=== PATIENT | male | born 1935 | race Caucasian/White ===

== ENCOUNTER 2018-02-14 00:29 | Inpatient (IN) ==
[2018-02-14] MEDS ORDERED: ASPIRIN 325 MG TABLET PO STA (00:55)
[2018-02-14] MEDS ORDERED: FUROSEMIDE 40 MG/4 ML VIAL IV STA (00:55)
[2018-02-14] MEDS ORDERED: ALBUTEROL/IPRATROPIUM 3 ML NEB RESP TX STA (00:55)
[2018-02-14] MEDS ORDERED: ONDANSETRON 4 MG/2 ML VIAL IV STA (00:55)
[2018-02-14] MEDS ORDERED: NITROGLYCERIN 2% OINT 1 INCH/GM PACK TOP STA (00:55)
[2018-02-14 01:14] LABS: Basophils # 0.1 10*3/uL (0.0-0.2); Basophils % 0.8 % (0.0-0.8); Eosinophils # 0.4 10*3/uL (0.0-0.87); Hematocrit 50.8 VOL% (42.0-52.0); Hemoglobin 16.8 GM/DL (14.0-18.0); Immature Granulocytes % 0.5 %; Immature Granulocytes Absolute 0.06 #; Lymphocytes # 1.3 10*3/uL (1.4-4.0); Lymphocytes % 10.4 % (21.2-54.2); Mean Corpuscular HGB Conc 33.1 GM/DL (32-36); Mean Corpuscular Hemoglobin 31 PG (27-34); Mean Corpuscular Volume 92.5 FL (87-102); Mean Platelet Volume 11.1 FL (9.6-12.0); Monocytes # 0.6 10*3/uL (0.11-0.8); Monocytes % 4.5 % (1.7-12.7); Neutrophils # 10.2 10*3/uL (1.4-7.4); Neutrophils % 80.8 % (38.7-73.9); Platelet Count 232 T/CUMM (130-400); Red Blood Count 5.49 MC/CUMM (3.8-5.5); Red Cell Distribution Width 13.7 % (9.3-17.3); White Blood Count 12.6 T/CUMM (4-12)
[2018-02-14 01:26] LABS: PT Patient Result 10.7 SECS; Partial Thromboplastin Time 23.3 SECS (0-40)
[2018-02-14] MEDS ORDERED: LEVOFLOXACIN INJ 750 MG in PREMIX 1 EACH IV STA (01:27)
[2018-02-14] MEDS ORDERED: ONDANSETRON 4 MG/2 ML VIAL ONE (01:35)
[2018-02-14] MEDS ORDERED: FUROSEMIDE 100 MG/10 ML VIAL ONE (01:35)
[2018-02-14] MEDS ORDERED: LEVOFLOXACIN INJ 150 ML IV ONE (01:35)
[2018-02-14] MEDS ORDERED: NITROGLYCERIN 2% OINT 1 INCH/GM PACK TOP ONE (01:35)
[2018-02-14 01:36] LABS: CKMB % 8.7 %
[2018-02-14] MEDS ORDERED: ASPIRIN 325 MG TABLET ONE (01:36)
[2018-02-14 01:40] LABS: Troponin I Only 0.508 NG/ML (0.00-0.045)
[2018-02-14 01:45] LABS: Albumin 4.1 G/DL (3.4-5.0); Bilirubin,Total 0.8 MG/DL (0.2-1.0); Calcium 10.1 MG/DL (8.5-10.1); Osmolality,Calculated 290.8 MOS/KG (273-304); Potassium 4.2 MMOL/L (3.5-5.1); Total Protein 8.5 G/DL (6.4-8.3)
[2018-02-14] MEDS ORDERED: MORPHINE 4 MG/1 ML VIAL ONE (02:45)
[2018-02-14] MEDS ORDERED: MORPHINE 4 MG/1 ML VIAL IV PRN (02:49)
[2018-02-14] MEDS ORDERED: ONDANSETRON 4 MG/2 ML VIAL IV PRN (02:49)
[2018-02-14] MEDS ORDERED: GLUCAGON 1 MG VIAL IM PRN (02:49)
[2018-02-14] MEDS ORDERED: ALBUTEROL 2.5 MG/3 ML NEB RESP TX PRN (02:49)
[2018-02-14] MEDS ORDERED: DEXTROSE 50% 25 GM/50 ML VIAL IV PRN (02:49)
[2018-02-14] MEDS ORDERED: NITROGLYCERIN SL 0.4 MG TABLET SL PRN (03:02)
[2018-02-14 04:26] LABS: Apearance,Urine CLEAR (Clear); Bilirubin,Urine Negative (Negative); Blood, Urine Small mg/dL (Negative); Glucose,Urine (UA) 150 mg/dL (Negative); Hyaline Casts,Urine 10 /LPF (0-3); Ketones,Urine Negative (Negative); Mucus,Urine Occasional /LPF (Occasional); Nitrite,Urine Negative (Negative); Protein,Urine Negative; RBC,Urine <1 /HPF (0-4); Urine Color Straw (Yellow); Urine Specific Gravity 1.008 (1.001-1.035); Urine Urobilinogen < 2.0 EU/DL (0.2-1.0)
[2018-02-14] MEDS: ENOXAPARIN 60 MG/0.6 ML SYRINGE SUBCUT SCH (05:09)
[2018-02-14] MEDS: ROSUVASTATIN 10 MG TABLET PO SCH (05:09)
[2018-02-14] MEDS: cefTRIAXone 1,000 MG in SYRINGE 1 EACH IV SCH (05:09)
[2018-02-14 05:16] LABS: Lactic Acid 3.5 MMOL/L (0.4-2.0)
[2018-02-14 06:32] LABS: Basophils % 0.3 % (0.0-0.8); Eosinophils % 0.1 % (0.00-10.9); Hematocrit 46.6 VOL% (42.0-52.0); Hemoglobin 15.5 GM/DL (14.0-18.0); Immature Granulocytes % 0.6 %; Immature Granulocytes Absolute 0.08 #; Lymphocytes # 0.5 10*3/uL (1.4-4.0); Lymphocytes % 3.8 % (21.2-54.2); Mean Corpuscular HGB Conc 33.3 GM/DL (32-36); Mean Corpuscular Hemoglobin 31 PG (27-34); Mean Corpuscular Volume 92.6 FL (87-102); Mean Platelet Volume 10.8 FL (9.6-12.0); Monocytes # 0.6 10*3/uL (0.11-0.8); Monocytes % 4.6 % (1.7-12.7); Neutrophils # 12.7 10*3/uL (1.4-7.4); Neutrophils % 90.6 % (38.7-73.9); Platelet Count 185 T/CUMM (130-400); Red Blood Count 5.03 MC/CUMM (3.8-5.5); Red Cell Distribution Width 13.7 % (9.3-17.3)
[2018-02-14] MEDS: LEVOTHYROXINE 25 MCG TABLET PO SCH (07:05)
[2018-02-14 07:10] LABS: Band Neutrophils 2 % (0-10); Lymphocytes 1 % (20-55); Segmented Neutrophils 91 % (50-85); Total Cells Counted 100
[2018-02-14 07:11] LABS: Calcium 9.9 MG/DL (8.5-10.1); Osmolality,Calculated 288.8 MOS/KG (273-304); Potassium 4.5 MMOL/L (3.5-5.1); Risk Ratio 2.87; Thyroid Stimulating Hormone 6.8 uIU/ml (0.358-3.74); VLDL CHOLESTEROL 18.6 MG/DL
[2018-02-14] MEDS: ALBUTEROL/IPRATROPIUM 3 ML NEB RESP TX SCH ×3 (07:17→19:20)
[2018-02-14] MEDS: FUROSEMIDE 40 MG/4 ML VIAL IV SCH ×2 (08:19→16:17)
[2018-02-14] MEDS: INSULIN LISPRO 100 UNIT/ML SUBCUT SCH ×4 (08:20→21:39)
[2018-02-14] MEDS: METOPROLOL TARTRATE 25 MG TABLET PO SCH ×2 (08:29→21:40)
[2018-02-14] MEDS: CLOPIDOGREL 75 MG TABLET PO SCH (08:29)
[2018-02-14] MEDS: PANTOPRAZOLE 40 MG TABLET PO SCH (08:29)
[2018-02-14] MEDS ORDERED: amLODIPine 10 MG TABLET PO SCH (09:00)
[2018-02-14] MEDS: AZITHROMYCIN INJ 500 MG in SODIUM CHLORIDE 0.9% 250 ML IV SCH (09:01)
[2018-02-14] MEDS: METOPROLOL TARTRATE 5 MG/5 ML VIAL IV SCH ×3 (16:50→17:02)
[2018-02-14] MEDS: ASPIRIN EC 81 MG TABLET PO SCH (21:40)
[2018-02-15] MEDS: ALBUTEROL/IPRATROPIUM 3 ML NEB RESP TX SCH ×4 (00:50→19:20)
[2018-02-15] MEDS ORDERED: METOPROLOL TARTRATE 5 MG/5 ML VIAL IV ONE ×3 (03:00→16:31)
[2018-02-15 05:53] LABS: Basophils # 0.1 10*3/uL (0.0-0.2); Basophils % 0.7 % (0.0-0.8); Eosinophils # 0.4 10*3/uL (0.0-0.87); Eosinophils % 3.3 % (0.00-10.9); Hematocrit 42.7 VOL% (42.0-52.0); Hemoglobin 14.1 GM/DL (14.0-18.0); Immature Granulocytes % 0.5 %; Immature Granulocytes Absolute 0.06 #; Lymphocytes # 1.5 10*3/uL (1.4-4.0); Lymphocytes % 11.6 % (21.2-54.2); Mean Corpuscular Hemoglobin 31 PG (27-34); Mean Corpuscular Volume 93.4 FL (87-102); Mean Platelet Volume 11.5 FL (9.6-12.0); Monocytes # 0.9 10*3/uL (0.11-0.8); Monocytes % 6.6 % (1.7-12.7); Neutrophils # 10.2 10*3/uL (1.4-7.4); Neutrophils % 77.3 % (38.7-73.9); Platelet Count 185 T/CUMM (130-400); Red Blood Count 4.57 MC/CUMM (3.8-5.5); Red Cell Distribution Width 14.1 % (9.3-17.3); White Blood Count 13.1 T/CUMM (4-12)
[2018-02-15] MEDS: ENOXAPARIN 60 MG/0.6 ML SYRINGE SUBCUT SCH (06:12)
[2018-02-15] MEDS: cefTRIAXone 1,000 MG in SYRINGE 1 EACH IV SCH (06:12)
[2018-02-15] MEDS: LEVOTHYROXINE 25 MCG TABLET PO SCH (06:12)
[2018-02-15 06:14] LABS: Calcium 9.6 MG/DL (8.5-10.1)
[2018-02-15 06:15] LABS: Osmolality,Calculated 285.4 MOS/KG (273-304); Potassium 4.2 MMOL/L (3.5-5.1)
[2018-02-15] MEDS: INSULIN LISPRO 100 UNIT/ML SUBCUT SCH ×3 (08:09→16:39)
[2018-02-15] MEDS: FUROSEMIDE 40 MG/4 ML VIAL IV SCH ×2 (08:23→16:07)
[2018-02-15] MEDS: AZITHROMYCIN INJ 500 MG in SODIUM CHLORIDE 0.9% 250 ML IV SCH (08:24)
[2018-02-15] MEDS: CLOPIDOGREL 75 MG TABLET PO SCH (08:24)
[2018-02-15] MEDS: PANTOPRAZOLE 40 MG TABLET PO SCH (08:25)
[2018-02-15] MEDS: METOPROLOL TARTRATE 25 MG TABLET PO SCH ×3 (08:25→20:18)
[2018-02-15] MEDS ORDERED: METOPROLOL TARTRATE 25 MG TABLET PO ONE (09:08)
[2018-02-15] MEDS: METOPROLOL TARTRATE 5 MG/5 ML VIAL IV SCH ×3 (11:06→11:35)
[2018-02-15] MEDS: ASPIRIN EC 81 MG TABLET PO SCH (20:18)
[2018-02-16] MEDS: INSULIN LISPRO 100 UNIT/ML SUBCUT SCH ×5 (01:30→21:33)
[2018-02-16] MEDS: ROSUVASTATIN 10 MG TABLET PO SCH (04:58)
[2018-02-16] MEDS: cefTRIAXone 1,000 MG in SYRINGE 1 EACH IV SCH (04:59)
[2018-02-16] MEDS: ENOXAPARIN 60 MG/0.6 ML SYRINGE SUBCUT SCH (04:59)
[2018-02-16 05:26] LABS: Basophils # 0.1 10*3/uL (0.0-0.2); Basophils % 0.7 % (0.0-0.8); Eosinophils # 0.2 10*3/uL (0.0-0.87); Eosinophils % 2.3 % (0.00-10.9); Hematocrit 43.9 VOL% (42.0-52.0); Hemoglobin 14.3 GM/DL (14.0-18.0); Immature Granulocytes % 0.3 %; Immature Granulocytes Absolute 0.03 #; Lymphocytes % 19.9 % (21.2-54.2); Mean Corpuscular HGB Conc 32.6 GM/DL (32-36); Mean Corpuscular Hemoglobin 31 PG (27-34); Mean Platelet Volume 11.4 FL (9.6-12.0); Monocytes # 0.7 10*3/uL (0.11-0.8); Monocytes % 6.9 % (1.7-12.7); Neutrophils # 7.2 10*3/uL (1.4-7.4); Neutrophils % 69.9 % (38.7-73.9); Platelet Count 131 T/CUMM (130-400); Red Blood Count 4.62 MC/CUMM (3.8-5.5); Red Cell Distribution Width 14.1 % (9.3-17.3); White Blood Count 10.3 T/CUMM (4-12)
[2018-02-16 05:56] LABS: Calcium 8.8 MG/DL (8.5-10.1)
[2018-02-16 05:57] LABS: Osmolality,Calculated 287.5 MOS/KG (273-304); Potassium 4.3 MMOL/L (3.5-5.1)
[2018-02-16 06:01] LABS: Troponin I Only 4.09 NG/ML (0.00-0.045)
[2018-02-16] MEDS: LEVOTHYROXINE 25 MCG TABLET PO SCH (06:34)
[2018-02-16] MEDS: ALBUTEROL/IPRATROPIUM 3 ML NEB RESP TX SCH ×4 (06:45→19:29)
[2018-02-16] MEDS: METOPROLOL TARTRATE 25 MG TABLET PO SCH ×3 (09:11→20:47)
[2018-02-16] MEDS: FUROSEMIDE 40 MG/4 ML VIAL IV SCH (09:11)
[2018-02-16] MEDS: CLOPIDOGREL 75 MG TABLET PO SCH (09:11)
[2018-02-16] MEDS: AZITHROMYCIN INJ 500 MG in SODIUM CHLORIDE 0.9% 250 ML IV SCH (09:11)
[2018-02-16] MEDS: PANTOPRAZOLE 40 MG TABLET PO SCH (09:11)
[2018-02-16] MEDS: ASPIRIN EC 81 MG TABLET PO SCH (20:47)
[2018-02-17] MEDS: ALBUTEROL/IPRATROPIUM 3 ML NEB RESP TX SCH ×4 (00:43→19:05)
[2018-02-17] MEDS: cefTRIAXone 1,000 MG in SYRINGE 1 EACH IV SCH (06:11)
[2018-02-17] MEDS: LEVOTHYROXINE 25 MCG TABLET PO SCH (06:11)
[2018-02-17] MEDS: ENOXAPARIN 60 MG/0.6 ML SYRINGE SUBCUT SCH (06:12)
[2018-02-17 08:12] LABS: Basophils # 0.1 10*3/uL (0.0-0.2); Basophils % 0.8 % (0.0-0.8); Eosinophils % 9.9 % (0.00-10.9); Hematocrit 41.5 VOL% (42.0-52.0); Hemoglobin 13.7 GM/DL (14.0-18.0); Immature Granulocytes % 0.5 %; Immature Granulocytes Absolute 0.05 #; Lymphocytes # 1.3 10*3/uL (1.4-4.0); Lymphocytes % 12.6 % (21.2-54.2); Mean Corpuscular Hemoglobin 31 PG (27-34); Mean Corpuscular Volume 93.3 FL (87-102); Mean Platelet Volume 11.6 FL (9.6-12.0); Monocytes # 0.8 10*3/uL (0.11-0.8); Monocytes % 7.3 % (1.7-12.7); Neutrophils # 7.1 10*3/uL (1.4-7.4); Neutrophils % 68.9 % (38.7-73.9); Platelet Count 150 T/CUMM (130-400); Red Blood Count 4.45 MC/CUMM (3.8-5.5); Red Cell Distribution Width 14.1 % (9.3-17.3); White Blood Count 10.4 T/CUMM (4-12)
[2018-02-17 08:38] LABS: Calcium 8.7 MG/DL (8.5-10.1); Osmolality,Calculated 294.1 MOS/KG (273-304); Potassium 3.7 MMOL/L (3.5-5.1)
[2018-02-17] MEDS: INSULIN LISPRO 100 UNIT/ML SUBCUT SCH ×4 (08:49→21:45)
[2018-02-17] MEDS: FUROSEMIDE 40 MG/4 ML VIAL IV SCH (08:50)
[2018-02-17] MEDS: METOPROLOL TARTRATE 25 MG TABLET PO SCH (08:50)
[2018-02-17] MEDS: CLOPIDOGREL 75 MG TABLET PO SCH (08:50)
[2018-02-17] MEDS: AZITHROMYCIN INJ 500 MG in SODIUM CHLORIDE 0.9% 250 ML IV SCH (08:57)
[2018-02-17] MEDS: PANTOPRAZOLE 40 MG TABLET PO SCH (09:36)
[2018-02-17] MEDS: METOPROLOL TARTRATE 50 MG TABLET PO SCH ×2 (14:53→21:46)
[2018-02-17] MEDS ORDERED: DILTIAZEM 30 MG TABLET PO ONE (17:00)
[2018-02-17] MEDS: ASPIRIN EC 81 MG TABLET PO SCH (21:45)
[2018-02-18] MEDS: ALBUTEROL/IPRATROPIUM 3 ML NEB RESP TX SCH ×2 (00:08→07:42)
[2018-02-18 04:33] LABS: Basophils # 0.1 10*3/uL (0.0-0.2); Basophils % 0.6 % (0.0-0.8); Eosinophils # 1.4 10*3/uL (0.0-0.87); Eosinophils % 12.7 % (0.00-10.9); Hematocrit 42.4 VOL% (42.0-52.0); Hemoglobin 14.1 GM/DL (14.0-18.0); Immature Granulocytes % 0.4 %; Immature Granulocytes Absolute 0.04 #; Lymphocytes # 1.8 10*3/uL (1.4-4.0); Lymphocytes % 16.4 % (21.2-54.2); Mean Corpuscular HGB Conc 33.3 GM/DL (32-36); Mean Corpuscular Hemoglobin 31 PG (27-34); Mean Corpuscular Volume 93.6 FL (87-102); Mean Platelet Volume 11.1 FL (9.6-12.0); Monocytes # 0.8 10*3/uL (0.11-0.8); Monocytes % 7.7 % (1.7-12.7); Neutrophils # 6.8 10*3/uL (1.4-7.4); Neutrophils % 62.2 % (38.7-73.9); Platelet Count 166 T/CUMM (130-400); Red Blood Count 4.53 MC/CUMM (3.8-5.5); Red Cell Distribution Width 14.2 % (9.3-17.3)
[2018-02-18 05:02] LABS: Calcium 8.8 MG/DL (8.5-10.1); Osmolality,Calculated 292.3 MOS/KG (273-304); Potassium 3.7 MMOL/L (3.5-5.1)
[2018-02-18 05:12] LABS: Band Neutrophils 1 % (0-10); Eosinophils 13 % (0-10); Giant Platelets Few; Hypochromasia 1+; Lymphocytes 17 % (20-55); Ovalocytes Slight; Platelet Estimate Normal; Segmented Neutrophils 64 % (50-85); Total Cells Counted 100
[2018-02-18] MEDS: ENOXAPARIN 60 MG/0.6 ML SYRINGE SUBCUT SCH (06:25)
[2018-02-18] MEDS: ROSUVASTATIN 10 MG TABLET PO SCH (06:25)
[2018-02-18] MEDS: cefTRIAXone 1,000 MG in SYRINGE 1 EACH IV SCH (06:25)
[2018-02-18] MEDS: LEVOTHYROXINE 25 MCG TABLET PO SCH (06:25)
[2018-02-18] MEDS: PANTOPRAZOLE 40 MG TABLET PO SCH (09:16)
[2018-02-18] MEDS: CLOPIDOGREL 75 MG TABLET PO SCH (09:16)
[2018-02-18] MEDS: INSULIN LISPRO 100 UNIT/ML SUBCUT SCH ×2 (09:16→14:01)
[2018-02-18] MEDS: METOPROLOL TARTRATE 50 MG TABLET PO SCH (09:16)
[2018-02-18] MEDS: AZITHROMYCIN INJ 500 MG in SODIUM CHLORIDE 0.9% 250 ML IV SCH (09:24)
[2018-02-18] MEDS: FUROSEMIDE 40 MG/4 ML VIAL IV SCH (09:24)
[2018-02-18 12:02] VITALS: BP 109/59
== END 2018-02-18 14:20 | disposition home or self-care (01) | DRG 280 ==
LOC: N.ED 00:29 → SUATTDRO 02:43 → N.EDINP 02:43 → N.CC 04:50 → N.TELES 02-16 13:56
PROVIDERS: ADMIT Internal Medicine Infectious Disease; ATTEND Internal Medicine

== ENCOUNTER 2018-02-19 07:59 | Inpatient (IN) ==
[2018-02-19] MEDS ORDERED: SODIUM CHLORIDE 0.9% 500 ML IV STA (08:59)
[2018-02-19] MEDS ORDERED: ASPIRIN CHEW 81 MG TABLET PO STA (09:00)
[2018-02-19 09:16] LABS: Basophils # 0.1 10*3/uL (0.0-0.2); Basophils % 0.6 % (0.0-0.8); Eosinophils # 1.2 10*3/uL (0.0-0.87); Hematocrit 43.4 VOL% (42.0-52.0); Hemoglobin 14.4 GM/DL (14.0-18.0); Immature Granulocytes % 0.4 %; Immature Granulocytes Absolute 0.04 #; Lymphocytes # 0.6 10*3/uL (1.4-4.0); Lymphocytes % 5.6 % (21.2-54.2); Mean Corpuscular HGB Conc 33.2 GM/DL (32-36); Mean Corpuscular Hemoglobin 31 PG (27-34); Mean Corpuscular Volume 94.1 FL (87-102); Mean Platelet Volume 10.7 FL (9.6-12.0); Monocytes # 0.7 10*3/uL (0.11-0.8); Neutrophils # 8.2 10*3/uL (1.4-7.4); Neutrophils % 76.4 % (38.7-73.9); Platelet Count 179 T/CUMM (130-400); Red Blood Count 4.61 MC/CUMM (3.8-5.5); Red Cell Distribution Width 14.4 % (9.3-17.3); White Blood Count 10.8 T/CUMM (4-12)
[2018-02-19] MEDS ORDERED: ASPIRIN CHEW 81 MG TABLET PO ONE (09:18)
[2018-02-19 09:37] LABS: Eosinophils 11 % (0-10); Lymphocytes 5 % (20-55); Segmented Neutrophils 80 % (50-85); Total Cells Counted 100
[2018-02-19 09:38] LABS: Microcytosis Slight; Platelet Estimate Adequate
[2018-02-19 09:42] LABS: Blood Urea Nitrogen 36 MG/DL (7-18); Calcium 9.2 MG/DL (8.5-10.1); Glucose 167 MG/DL (74-106); Osmolality,Calculated 290.4 MOS/KG (273-304); Potassium 3.8 MMOL/L (3.5-5.1); Sodium 140 MMOL/L (136-145)
[2018-02-19 09:43] LABS: Troponin I Only 0.709 NG/ML (0.00-0.045)
[2018-02-19] MEDS ORDERED: ACETAMINOPHEN 325 MG TABLET PO PRN (12:45)
[2018-02-19] MEDS ORDERED: LACTULOSE 20 GM/30 ML UDCUP PO PRN (12:45)
[2018-02-19] MEDS ORDERED: DOCUSATE SODIUM 100 MG CAPSULE PO PRN (12:45)
[2018-02-19] MEDS ORDERED: FUROSEMIDE 40 MG/4 ML VIAL IV STA (12:52)
[2018-02-19] MEDS ORDERED: DILTIAZEM 100 MG VIAL.ADD IV ONE (13:49)
[2018-02-19] MEDS ORDERED: DILTIAZEM INJ 100 MG in SODIUM CHLORIDE 0.9% 100 ML IV SCH (14:00)
[2018-02-19] MEDS: ENOXAPARIN 40 MG/0.4 ML SYRINGE SUBCUT SCH (14:01)
[2018-02-19] MEDS: MORPHINE 4 MG/1 ML VIAL IV PRN (14:07)
[2018-02-19] MEDS ORDERED: NITROGLYCERIN SL 0.4 MG TABLET SL PRN (14:21)
[2018-02-19 15:06] LABS: ABG HCO3 19.2 MMOL/L (20-26); ABG PH 7.487 (7.35-7.45)
[2018-02-19 15:07] LABS: ABG Base Excess -2.3 MMOL/L (-2.5-2.5); ABG Oxygen Saturation 90.9 % (95-100)
[2018-02-19] MEDS: ASPIRIN EC 81 MG TABLET PO SCH (21:12)
[2018-02-19] MEDS: METOPROLOL TARTRATE 50 MG TABLET PO SCH (21:12)
[2018-02-20] MEDS: ENOXAPARIN 40 MG/0.4 ML SYRINGE SUBCUT SCH ×2 (02:04→15:15)
[2018-02-20 05:12] LABS: Basophils # 0.1 10*3/uL (0.0-0.2); Basophils % 0.3 % (0.0-0.8); Eosinophils # 0.1 10*3/uL (0.0-0.87); Eosinophils % 0.8 % (0.00-10.9); Hematocrit 42.5 VOL% (42.0-52.0); Hemoglobin 14.4 GM/DL (14.0-18.0); Immature Granulocytes % 0.5 %; Immature Granulocytes Absolute 0.08 #; Lymphocytes # 0.9 10*3/uL (1.4-4.0); Lymphocytes % 5.8 % (21.2-54.2); Mean Corpuscular HGB Conc 33.9 GM/DL (32-36); Mean Corpuscular Hemoglobin 31 PG (27-34); Mean Corpuscular Volume 92.2 FL (87-102); Mean Platelet Volume 11.4 FL (9.6-12.0); Monocytes # 0.8 10*3/uL (0.11-0.8); Monocytes % 5.5 % (1.7-12.7); Neutrophils # 12.8 10*3/uL (1.4-7.4); Neutrophils % 87.1 % (38.7-73.9); Platelet Count 208 T/CUMM (130-400); Red Blood Count 4.61 MC/CUMM (3.8-5.5); Red Cell Distribution Width 14.6 % (9.3-17.3); White Blood Count 14.7 T/CUMM (4-12)
[2018-02-20 05:31] LABS: Calcium 9.2 MG/DL (8.5-10.1); Osmolality,Calculated 292.4 MOS/KG (273-304); Potassium 4.6 MMOL/L (3.5-5.1)
[2018-02-20] MEDS: LEVOTHYROXINE 25 MCG TABLET PO SCH (06:16)
[2018-02-20] MEDS ORDERED: amLODIPine 10 MG TABLET PO SCH (09:00)
[2018-02-20] MEDS: CLOPIDOGREL 75 MG TABLET PO SCH (09:16)
[2018-02-20] MEDS: PANTOPRAZOLE 40 MG TABLET PO SCH (09:16)
[2018-02-20] MEDS: ASPIRIN EC 81 MG TABLET PO SCH ×2 (09:17→21:10)
[2018-02-20] MEDS: METOPROLOL TARTRATE 50 MG TABLET PO SCH (10:33)
[2018-02-20] MEDS: METOPROLOL TARTRATE 25 MG TABLET PO SCH ×2 (12:31→21:08)
[2018-02-20] MEDS: AMIODARONE 200 MG TABLET PO SCH ×2 (12:31→21:08)
[2018-02-20] MEDS: FUROSEMIDE 40 MG/4 ML VIAL IV SCH (15:15)
[2018-02-21] MEDS: MORPHINE 4 MG/1 ML VIAL IV PRN (00:42)
[2018-02-21] MEDS: ONDANSETRON 4 MG/2 ML VIAL IV PRN (00:50)
[2018-02-21] MEDS: ENOXAPARIN 40 MG/0.4 ML SYRINGE SUBCUT SCH (02:11)
[2018-02-21 04:37] LABS: Basophils # 0.1 10*3/uL (0.0-0.2); Basophils % 0.9 % (0.0-0.8); Eosinophils # 0.8 10*3/uL (0.0-0.87); Eosinophils % 8.8 % (0.00-10.9); Hematocrit 41.9 VOL% (42.0-52.0); Hemoglobin 13.9 GM/DL (14.0-18.0); Immature Granulocytes % 0.2 %; Immature Granulocytes Absolute 0.02 #; Lymphocytes # 1.1 10*3/uL (1.4-4.0); Lymphocytes % 12.2 % (21.2-54.2); Mean Corpuscular HGB Conc 33.2 GM/DL (32-36); Mean Corpuscular Hemoglobin 31 PG (27-34); Mean Corpuscular Volume 93.7 FL (87-102); Mean Platelet Volume 11.3 FL (9.6-12.0); Monocytes # 0.5 10*3/uL (0.11-0.8); Monocytes % 5.7 % (1.7-12.7); Neutrophils # 6.7 10*3/uL (1.4-7.4); Neutrophils % 72.2 % (38.7-73.9); Platelet Count 191 T/CUMM (130-400); Red Blood Count 4.47 MC/CUMM (3.8-5.5); Red Cell Distribution Width 14.6 % (9.3-17.3); White Blood Count 9.3 T/CUMM (4-12)
[2018-02-21 04:51] LABS: Calcium 8.7 MG/DL (8.5-10.1); Osmolality,Calculated 296.1 MOS/KG (273-304); Potassium 4.1 MMOL/L (3.5-5.1)
[2018-02-21] MEDS: LEVOTHYROXINE 25 MCG TABLET PO SCH (06:00)
[2018-02-21] MEDS: FUROSEMIDE 40 MG/4 ML VIAL IV SCH (08:43)
[2018-02-21] MEDS: CLOPIDOGREL 75 MG TABLET PO SCH (08:43)
[2018-02-21] MEDS: AMIODARONE 200 MG TABLET PO SCH ×2 (08:43→21:19)
[2018-02-21] MEDS: METOPROLOL TARTRATE 25 MG TABLET PO SCH ×2 (08:43→21:19)
[2018-02-21] MEDS: ASPIRIN EC 81 MG TABLET PO SCH ×2 (08:44→21:19)
[2018-02-21] MEDS: PANTOPRAZOLE 40 MG TABLET PO SCH (08:44)
[2018-02-21] MEDS ORDERED: DEXTROSE 50% 25 GM/50 ML VIAL IV PRN (13:50)
[2018-02-21] MEDS ORDERED: GLUCAGON 1 MG VIAL IM PRN (13:50)
[2018-02-21] MEDS: ROSUVASTATIN 10 MG TABLET PO SCH (14:29)
[2018-02-21] MEDS: INSULIN LISPRO 100 UNIT/ML SUBCUT SCH ×2 (16:51→21:55)
[2018-02-22] MEDS: ONDANSETRON 4 MG/2 ML VIAL IV PRN (00:01)
[2018-02-22] MEDS: MORPHINE 4 MG/1 ML VIAL IV PRN (00:14)
[2018-02-22 04:42] LABS: Basophils # 0.1 10*3/uL (0.0-0.2); Basophils % 0.7 % (0.0-0.8); Eosinophils % 11.1 % (0.00-10.9); Hematocrit 41.3 VOL% (42.0-52.0); Hemoglobin 13.6 GM/DL (14.0-18.0); Immature Granulocytes Absolute 0.09 #; Lymphocytes # 1.5 10*3/uL (1.4-4.0); Lymphocytes % 15.5 % (21.2-54.2); Mean Corpuscular HGB Conc 32.9 GM/DL (32-36); Mean Corpuscular Hemoglobin 31 PG (27-34); Mean Corpuscular Volume 94.7 FL (87-102); Mean Platelet Volume 11.3 FL (9.6-12.0); Monocytes # 0.6 10*3/uL (0.11-0.8); Monocytes % 6.6 % (1.7-12.7); Neutrophils # 6.1 10*3/uL (1.4-7.4); Neutrophils % 65.1 % (38.7-73.9); Platelet Count 201 T/CUMM (130-400); Red Blood Count 4.36 MC/CUMM (3.8-5.5); Red Cell Distribution Width 14.4 % (9.3-17.3); White Blood Count 9.4 T/CUMM (4-12)
[2018-02-22 05:06] LABS: Calcium 9.1 MG/DL (8.5-10.1); Osmolality,Calculated 290.7 MOS/KG (273-304); Potassium 4.3 MMOL/L (3.5-5.1)
[2018-02-22 05:14] LABS: Eosinophils 9 % (0-10); Lymphocytes 14 % (20-55); Segmented Neutrophils 73 % (50-85); Total Cells Counted 100
[2018-02-22 05:15] LABS: Platelet Estimate Adequate; Polychromasia Slight
[2018-02-22] MEDS: LEVOTHYROXINE 25 MCG TABLET PO SCH (06:26)
[2018-02-22] MEDS: ENOXAPARIN 30 MG/0.3 ML SYRINGE SUBCUT SCH (06:26)
[2018-02-22] MEDS ORDERED: MAGNESIUM SULF RIDER 2 GM in PREMIX 1 EACH IV PRN (08:29)
[2018-02-22] MEDS ORDERED: diphenhydrAMINE CAP 25 MG CAPSULE PO ONE (08:29)
[2018-02-22] MEDS ORDERED: POTASSIUM CHLORIDE RIDER 10 MEQ in PREMIX 1 EACH IV PRN (08:29)
[2018-02-22] MEDS ORDERED: DIAZEPAM 5 MG TABLET PO ONE (08:29)
[2018-02-22] MEDS ORDERED: FUROSEMIDE 40 MG/4 ML VIAL IV SCH (09:00)
[2018-02-22] MEDS: INSULIN LISPRO 100 UNIT/ML SUBCUT SCH ×4 (09:32→22:02)
[2018-02-22] MEDS: AMIODARONE 200 MG TABLET PO SCH ×2 (10:09→21:32)
[2018-02-22] MEDS: METOPROLOL TARTRATE 25 MG TABLET PO SCH ×2 (10:10→21:32)
[2018-02-22] MEDS: ASPIRIN EC 81 MG TABLET PO SCH ×2 (10:10→21:32)
[2018-02-22] MEDS: PANTOPRAZOLE 40 MG TABLET PO SCH (10:10)
[2018-02-22] MEDS: CLOPIDOGREL 75 MG TABLET PO SCH (10:10)
[2018-02-22] MEDS ORDERED: LIDOCAINE 5% PATCH TRANSDERM PRN (13:25)
[2018-02-22] MEDS ORDERED: CLORAZEPATE 3.75 MG TABLET PO PRN (14:34)
[2018-02-23] MEDS: MORPHINE 4 MG/1 ML VIAL IV PRN (00:37)
[2018-02-23 05:52] LABS: Basophils # 0.1 10*3/uL (0.0-0.2); Basophils % 0.8 % (0.0-0.8); Eosinophils # 0.5 10*3/uL (0.0-0.87); Eosinophils % 4.5 % (0.00-10.9); Hematocrit 43.6 VOL% (42.0-52.0); Immature Granulocytes % 0.5 %; Immature Granulocytes Absolute 0.05 #; Lymphocytes # 1.1 10*3/uL (1.4-4.0); Lymphocytes % 10.8 % (21.2-54.2); Mean Corpuscular HGB Conc 32.1 GM/DL (32-36); Mean Corpuscular Hemoglobin 31 PG (27-34); Mean Corpuscular Volume 95.2 FL (87-102); Mean Platelet Volume 11.6 FL (9.6-12.0); Monocytes # 0.8 10*3/uL (0.11-0.8); Monocytes % 7.7 % (1.7-12.7); Neutrophils # 7.7 10*3/uL (1.4-7.4); Neutrophils % 75.7 % (38.7-73.9); Platelet Count 168 T/CUMM (130-400); Red Blood Count 4.58 MC/CUMM (3.8-5.5); Red Cell Distribution Width 14.7 % (9.3-17.3); White Blood Count 10.2 T/CUMM (4-12)
[2018-02-23] MEDS: ENOXAPARIN 30 MG/0.3 ML SYRINGE SUBCUT SCH (06:15)
[2018-02-23] MEDS: LEVOTHYROXINE 25 MCG TABLET PO SCH (06:15)
[2018-02-23 06:16] LABS: Calcium 8.7 MG/DL (8.5-10.1); Osmolality,Calculated 296.4 MOS/KG (273-304); Potassium 4.7 MMOL/L (3.5-5.1)
[2018-02-23] MEDS ORDERED: DIAZEPAM 5 MG TABLET PO ONE (06:30)
[2018-02-23] MEDS ORDERED: diphenhydrAMINE CAP 50 MG CAPSULE PO ONE (06:30)
[2018-02-23] MEDS ORDERED: HEPARIN/NACL 0.9% 2 UNITS/ML 1,000 ML IV ONE (06:48)
[2018-02-23] MEDS ORDERED: LIDOCAINE 1%/EPI INJ 20 ML VIAL ONE (06:48)
[2018-02-23] MEDS: CLOPIDOGREL 75 MG TABLET PO SCH ×2 (06:56→09:11)
[2018-02-23] MEDS: PANTOPRAZOLE 40 MG TABLET PO SCH ×2 (06:56→09:11)
[2018-02-23] MEDS: AMIODARONE 200 MG TABLET PO SCH ×3 (06:56→21:24)
[2018-02-23] MEDS: ASPIRIN EC 81 MG TABLET PO SCH ×3 (06:56→21:24)
[2018-02-23] MEDS: METOPROLOL TARTRATE 25 MG TABLET PO SCH ×3 (06:57→21:24)
[2018-02-23] MEDS ORDERED: MIDAZOLAM 2 MG/2 ML VIAL ONE (07:23)
[2018-02-23] MEDS ORDERED: fentaNYL 100 MCG/2 ML VIAL ONE (07:23)
[2018-02-23] MEDS: INSULIN LISPRO 100 UNIT/ML SUBCUT SCH ×4 (07:41→22:49)
[2018-02-23] MEDS ORDERED: SODIUM CHLORIDE 0.45% 1,000 ML IV SCH (08:30)
[2018-02-23] MEDS ORDERED: FUROSEMIDE 40 MG TABLET PO SCH (09:00)
[2018-02-23] MEDS: ROSUVASTATIN 10 MG TABLET PO SCH (15:36)
[2018-02-24 04:57] LABS: Basophils % 0.4 % (0.0-0.8); Eosinophils # 0.2 10*3/uL (0.0-0.87); Hematocrit 43.1 VOL% (42.0-52.0); Hemoglobin 14.4 GM/DL (14.0-18.0); Immature Granulocytes % 0.4 %; Immature Granulocytes Absolute 0.04 #; Lymphocytes # 1.6 10*3/uL (1.4-4.0); Mean Corpuscular HGB Conc 33.4 GM/DL (32-36); Mean Corpuscular Hemoglobin 31 PG (27-34); Mean Corpuscular Volume 93.1 FL (87-102); Mean Platelet Volume 11.9 FL (9.6-12.0); Monocytes % 9.2 % (1.7-12.7); Neutrophils # 7.9 10*3/uL (1.4-7.4); Platelet Count 241 T/CUMM (130-400); Red Blood Count 4.63 MC/CUMM (3.8-5.5); Red Cell Distribution Width 14.9 % (9.3-17.3); White Blood Count 10.8 T/CUMM (4-12)
[2018-02-24 05:29] LABS: Calcium 8.9 MG/DL (8.5-10.1); Osmolality,Calculated 295.7 MOS/KG (273-304); Potassium 4.8 MMOL/L (3.5-5.1)
[2018-02-24] MEDS: ENOXAPARIN 30 MG/0.3 ML SYRINGE SUBCUT SCH (06:30)
[2018-02-24] MEDS: LEVOTHYROXINE 25 MCG TABLET PO SCH (06:31)
[2018-02-24] MEDS: INSULIN LISPRO 100 UNIT/ML SUBCUT SCH ×4 (08:00→22:14)
[2018-02-24] MEDS: PANTOPRAZOLE 40 MG TABLET PO SCH (08:45)
[2018-02-24] MEDS: ASPIRIN EC 81 MG TABLET PO SCH ×2 (08:45→21:22)
[2018-02-24] MEDS: AMIODARONE 200 MG TABLET PO SCH ×2 (08:45→21:22)
[2018-02-24] MEDS: METOPROLOL TARTRATE 25 MG TABLET PO SCH ×2 (08:46→21:22)
[2018-02-24] MEDS: CLOPIDOGREL 75 MG TABLET PO SCH (08:46)
[2018-02-24] MEDS ORDERED: FUROSEMIDE 40 MG/4 ML VIAL IV ONE (09:21)
[2018-02-24] MEDS: SODIUM CHLORIDE 0.45% 1,000 ML IV SCH ×2 (09:53→20:02)
[2018-02-25 05:09] LABS: Basophils # 0.1 10*3/uL (0.0-0.2); Basophils % 0.5 % (0.0-0.8); Eosinophils # 0.4 10*3/uL (0.0-0.87); Eosinophils % 4.1 % (0.00-10.9); Hematocrit 40.4 VOL% (42.0-52.0); Hemoglobin 13.8 GM/DL (14.0-18.0); Immature Granulocytes % 0.3 %; Immature Granulocytes Absolute 0.03 #; Lymphocytes # 1.3 10*3/uL (1.4-4.0); Lymphocytes % 14.1 % (21.2-54.2); Mean Corpuscular HGB Conc 34.2 GM/DL (32-36); Mean Corpuscular Hemoglobin 32 PG (27-34); Mean Corpuscular Volume 92.2 FL (87-102); Mean Platelet Volume 11.6 FL (9.6-12.0); Monocytes # 0.8 10*3/uL (0.11-0.8); Monocytes % 8.4 % (1.7-12.7); NRBC # 0.02 10*3/uL; Neutrophils # 6.8 10*3/uL (1.4-7.4); Neutrophils % 72.6 % (38.7-73.9); Platelet Count 198 T/CUMM (130-400); Red Blood Count 4.38 MC/CUMM (3.8-5.5); Red Cell Distribution Width 14.6 % (9.3-17.3); White Blood Count 9.3 T/CUMM (4-12)
[2018-02-25 05:37] LABS: Calcium 7.9 MG/DL (8.5-10.1); Osmolality,Calculated 295.7 MOS/KG (273-304); Potassium 4.3 MMOL/L (3.5-5.1)
[2018-02-25 05:42] LABS: Calcium 8.2 MG/DL (8.5-10.1); Osmolality,Calculated 298.5 MOS/KG (273-304); Potassium 4.4 MMOL/L (3.5-5.1)
[2018-02-25] MEDS: SODIUM CHLORIDE 0.45% 1,000 ML IV SCH ×2 (06:02→15:37)
[2018-02-25] MEDS: ENOXAPARIN 30 MG/0.3 ML SYRINGE SUBCUT SCH (06:03)
[2018-02-25] MEDS: LEVOTHYROXINE 25 MCG TABLET PO SCH (06:03)
[2018-02-25] MEDS: INSULIN LISPRO 100 UNIT/ML SUBCUT SCH ×4 (08:04→20:38)
[2018-02-25] MEDS: CLOPIDOGREL 75 MG TABLET PO SCH (08:43)
[2018-02-25] MEDS: METOPROLOL TARTRATE 25 MG TABLET PO SCH ×2 (08:43→20:37)
[2018-02-25] MEDS: ASPIRIN EC 81 MG TABLET PO SCH ×2 (08:43→20:37)
[2018-02-25] MEDS: PANTOPRAZOLE 40 MG TABLET PO SCH (08:43)
[2018-02-25] MEDS: AMIODARONE 200 MG TABLET PO SCH ×2 (08:43→20:37)
[2018-02-25] MEDS: ROSUVASTATIN 10 MG TABLET PO SCH (15:29)
[2018-02-26] MEDS: SODIUM CHLORIDE 0.45% 1,000 ML IV SCH (03:01)
[2018-02-26 05:39] LABS: Calcium 8.2 MG/DL (8.5-10.1); Osmolality,Calculated 293.8 MOS/KG (273-304); Potassium 4.3 MMOL/L (3.5-5.1)
[2018-02-26] MEDS: LEVOTHYROXINE 25 MCG TABLET PO SCH (06:07)
[2018-02-26] MEDS: ENOXAPARIN 30 MG/0.3 ML SYRINGE SUBCUT SCH (06:08)
[2018-02-26] MEDS: INSULIN LISPRO 100 UNIT/ML SUBCUT SCH ×4 (09:36→22:23)
[2018-02-26] MEDS: METOPROLOL TARTRATE 25 MG TABLET PO SCH ×2 (09:37→20:24)
[2018-02-26] MEDS: CLOPIDOGREL 75 MG TABLET PO SCH (09:38)
[2018-02-26] MEDS: AMIODARONE 200 MG TABLET PO SCH (09:38)
[2018-02-26] MEDS: ASPIRIN EC 81 MG TABLET PO SCH (09:38)
[2018-02-26] MEDS: PANTOPRAZOLE 40 MG TABLET PO SCH (09:38)
[2018-02-26] MEDS ORDERED: FUROSEMIDE 40 MG/4 ML VIAL IV ONE (10:24)
[2018-02-26] MEDS: POTASSIUM CHLORIDE 10 MEQ TABLET PO SCH ×2 (11:04→20:24)
[2018-02-26] MEDS ORDERED: FUROSEMIDE 40 MG/4 ML VIAL IV SCH (16:00)
[2018-02-26] MEDS: hydrALAZINE 25 MG TABLET PO SCH ×2 (17:00→20:24)
[2018-02-26] MEDS: FUROSEMIDE 40 MG/4 ML VIAL IV SCH (17:01)
[2018-02-27 05:54] LABS: Calcium 8.5 MG/DL (8.5-10.1); Osmolality,Calculated 291.5 MOS/KG (273-304)
[2018-02-27] MEDS: LEVOTHYROXINE 25 MCG TABLET PO SCH (06:30)
[2018-02-27] MEDS: ENOXAPARIN 30 MG/0.3 ML SYRINGE SUBCUT SCH (06:31)
[2018-02-27] MEDS: INSULIN LISPRO 100 UNIT/ML SUBCUT SCH ×4 (09:29→20:44)
[2018-02-27] MEDS: ASPIRIN EC 81 MG TABLET PO SCH (09:37)
[2018-02-27] MEDS: AMIODARONE 200 MG TABLET PO SCH (09:37)
[2018-02-27] MEDS: POTASSIUM CHLORIDE 10 MEQ TABLET PO SCH ×2 (09:37→20:36)
[2018-02-27] MEDS: hydrALAZINE 25 MG TABLET PO SCH (09:37)
[2018-02-27] MEDS: METOPROLOL TARTRATE 25 MG TABLET PO SCH ×2 (09:37→20:36)
[2018-02-27] MEDS: PANTOPRAZOLE 40 MG TABLET PO SCH (09:38)
[2018-02-27] MEDS: CLOPIDOGREL 75 MG TABLET PO SCH (09:38)
[2018-02-27] MEDS: FUROSEMIDE 40 MG/4 ML VIAL IV SCH ×2 (09:43→17:11)
[2018-02-28 05:50] LABS: Calcium 8.1 MG/DL (8.5-10.1); Osmolality,Calculated 292.3 MOS/KG (273-304); Potassium 3.6 MMOL/L (3.5-5.1)
[2018-02-28] MEDS: ENOXAPARIN 30 MG/0.3 ML SYRINGE SUBCUT SCH (06:10)
[2018-02-28] MEDS: LEVOTHYROXINE 25 MCG TABLET PO SCH (06:10)
[2018-02-28] MEDS: FUROSEMIDE 40 MG/4 ML VIAL IV SCH (08:48)
[2018-02-28] MEDS: ASPIRIN EC 81 MG TABLET PO SCH (08:48)
[2018-02-28] MEDS: CLOPIDOGREL 75 MG TABLET PO SCH (08:48)
[2018-02-28] MEDS: AMIODARONE 200 MG TABLET PO SCH (08:48)
[2018-02-28] MEDS: POTASSIUM CHLORIDE 10 MEQ TABLET PO SCH (08:48)
[2018-02-28] MEDS: METOPROLOL TARTRATE 25 MG TABLET PO SCH ×2 (08:48→08:56)
[2018-02-28] MEDS: PANTOPRAZOLE 40 MG TABLET PO SCH (08:48)
[2018-02-28] MEDS: INSULIN LISPRO 100 UNIT/ML SUBCUT SCH (08:49)
[2018-02-28 11:54] VITALS: BP 95/67
== END 2018-02-28 12:00 | disposition home or self-care (01) | DRG 280 ==
LOC: N.ED 07:59 → SUATTDRO 10:57 → N.EDINP 10:57 → N.TELEN 13:16
PROVIDERS: ADMIT Internal Medicine; ATTEND Internal Medicine

== ENCOUNTER 2018-03-03 15:18 | Inpatient (IN) ==
[2018-03-03] MEDS ORDERED: FUROSEMIDE 40 MG/4 ML VIAL IV STA (15:50)
[2018-03-03] MEDS ORDERED: MORPHINE 4 MG/1 ML VIAL IV STA ×2 (15:50→16:00)
[2018-03-03 16:05] LABS: Basophils # 0.1 10*3/uL (0.0-0.2); Basophils % 0.7 % (0.0-0.8); Eosinophils # 0.7 10*3/uL (0.0-0.87); Eosinophils % 4.6 % (0.00-10.9); Hematocrit 47.1 VOL% (42.0-52.0); Immature Granulocytes % 0.5 %; Immature Granulocytes Absolute 0.07 #; Lymphocytes # 2.4 10*3/uL (1.4-4.0); Mean Corpuscular HGB Conc 31.8 GM/DL (32-36); Mean Corpuscular Hemoglobin 31 PG (27-34); Mean Corpuscular Volume 96.1 FL (87-102); Mean Platelet Volume 10.8 FL (9.6-12.0); Monocytes # 0.8 10*3/uL (0.11-0.8); Monocytes % 5.3 % (1.7-12.7); Neutrophils # 11.1 10*3/uL (1.4-7.4); Neutrophils % 72.9 % (38.7-73.9); Platelet Count 302 T/CUMM (130-400); Red Cell Distribution Width 14.8 % (9.3-17.3); White Blood Count 15.2 T/CUMM (4-12)
[2018-03-03 16:13] LABS: PT Patient Result 10.9 SECS
[2018-03-03] MEDS ORDERED: FUROSEMIDE 40 MG/4 ML VIAL ONE ×2 (16:20→16:22)
[2018-03-03] MEDS ORDERED: MORPHINE 4 MG/1 ML VIAL ONE (16:23)
[2018-03-03] MEDS ORDERED: FUROSEMIDE 40 MG/4 ML VIAL IV ONE (16:25)
[2018-03-03 16:26] LABS: Lactic Acid 4.2 MMOL/L (0.4-2.0)
[2018-03-03 16:27] LABS: Blood Urea Nitrogen 34 MG/DL (7-18); Calcium 8.8 MG/DL (8.5-10.1); Glucose 193 MG/DL (74-106); Osmolality,Calculated 287.7 MOS/KG (273-304); Potassium 4.3 MMOL/L (3.5-5.1); Sodium 138 MMOL/L (136-145)
[2018-03-03 16:28] LABS: Troponin I Only 0.173 NG/ML (0.00-0.045)
[2018-03-03] MEDS ORDERED: ETOMIDATE 20 MG/10 ML VIAL IV ONE ×2 (17:10→17:18)
[2018-03-03] MEDS ORDERED: ROCURONIUM 100 MG/10 ML VIAL IV ONE ×2 (17:10→17:19)
[2018-03-03] MEDS ORDERED: ONDANSETRON 4 MG/2 ML VIAL IV PRN (17:50)
[2018-03-03] MEDS: PROPOFOL 1,000 MG/100 ML BOTTLE IV SCH (18:10)
[2018-03-03] MEDS ORDERED: SODIUM CHLORIDE 0.9% 1,400 ML IV ONE (18:14)
[2018-03-03] MEDS ORDERED: PROPOFOL 1,000 MG/100 ML BOTTLE IV ONE (18:14)
[2018-03-03] MEDS ORDERED: DEXTROSE 50% 25 GM/50 ML VIAL IV PRN (18:48)
[2018-03-03] MEDS ORDERED: GLUCAGON 1 MG VIAL IM PRN (18:48)
[2018-03-03] MEDS: PANTOPRAZOLE 40 MG VIAL IV SCH (19:01)
[2018-03-03 19:05] LABS: ABG Base Excess -6.9 MMOL/L (-2.5-2.5); ABG HCO3 18.9 MMOL/L (20-26); ABG Oxygen Saturation 99.3 % (95-100); ABG PCO2 46.2 MM HG (35-48); ABG PH 7.258 (7.35-7.45); ABG TCO2 17.8 MMOL/L (23-27); Allen Test Positive; Pt O2 Delivery Device Ventilator
[2018-03-03] MEDS: LEVOFLOXACIN INJ 750 MG in PREMIX 1 EACH IV SCH (19:40)
[2018-03-03] MEDS: ALBUTEROL/IPRATROPIUM 3 ML NEB RESP TX SCH (19:51)
[2018-03-03] MEDS: ALBUTEROL 2.5 MG/3 ML NEB RESP TX PRN (19:55)
[2018-03-03 20:22] LABS: ABG Base Excess -5.1 MMOL/L (-2.5-2.5); ABG HCO3 20.3 MMOL/L (20-26); ABG Oxygen Saturation 98.8 % (95-100); ABG PCO2 32.5 MM HG (35-48); ABG PH 7.377 (7.35-7.45); ABG TCO2 16.5 MMOL/L (23-27); Allen Test Positive; Pt O2 Delivery Device Ventilator
[2018-03-03] MEDS ORDERED: INSULIN LISPRO 100 UNIT/ML SUBCUT SCH (21:00)
[2018-03-03 21:42] LABS: Apearance,Urine CLEAR (Clear); Bacteria,Urine Occasional /HPF (Few); Bilirubin,Urine Negative (Negative); Blood, Urine Large mg/dL (Negative); Glucose,Urine (UA) Negative (Negative); Hyaline Casts,Urine 19 /LPF (0-3); Ketones,Urine Negative (Negative); Nitrite,Urine Negative (Negative); Protein,Urine Negative; RBC,Urine 306 /HPF (0-4); Squamous Epithelial Cell,Urine Occasional /HPF (0-10); Urine Color Yellow (Yellow); Urine Specific Gravity 1.008 (1.001-1.035); Urine Urobilinogen < 2.0 EU/DL (0.2-1.0); WBC,Urine 16 /HPF (0-6)
[2018-03-04] MEDS: ALBUTEROL/IPRATROPIUM 3 ML NEB RESP TX SCH ×4 (00:42→19:50)
[2018-03-04] MEDS: INSULIN LISPRO 100 UNIT/ML SUBCUT SCH ×4 (00:43→18:34)
[2018-03-04 03:37] LABS: ABG Base Excess -1.9 MMOL/L (-2.5-2.5); ABG HCO3 22.8 MMOL/L (20-26); ABG Oxygen Saturation 99.5 % (95-100); ABG PCO2 30.4 MM HG (35-48); ABG PH 7.446 (7.35-7.45); Allen Test Positive; Pt O2 Delivery Device Ventilator
[2018-03-04 05:15] LABS: Basophils # 0.1 10*3/uL (0.0-0.2); Basophils % 0.4 % (0.0-0.8); Eosinophils # 0.2 10*3/uL (0.0-0.87); Eosinophils % 1.6 % (0.00-10.9); Hematocrit 41.5 VOL% (42.0-52.0); Hemoglobin 13.2 GM/DL (14.0-18.0); Immature Granulocytes % 0.4 %; Immature Granulocytes Absolute 0.06 #; Lymphocytes % 7.2 % (21.2-54.2); Mean Corpuscular HGB Conc 31.8 GM/DL (32-36); Mean Corpuscular Hemoglobin 31 PG (27-34); Mean Corpuscular Volume 96.1 FL (87-102); Mean Platelet Volume 11.2 FL (9.6-12.0); Monocytes # 1.1 10*3/uL (0.11-0.8); Monocytes % 8.4 % (1.7-12.7); Neutrophils # 10.9 10*3/uL (1.4-7.4); Platelet Count 206 T/CUMM (130-400); Red Blood Count 4.32 MC/CUMM (3.8-5.5); Red Cell Distribution Width 14.6 % (9.3-17.3); White Blood Count 13.3 T/CUMM (4-12)
[2018-03-04 05:34] LABS: INR 1.1; PT Patient Result 11.9 SECS
[2018-03-04 05:49] LABS: Albumin 2.8 G/DL (3.4-5.0); Bilirubin,Total 0.9 MG/DL (0.2-1.0); Calcium 8.5 MG/DL (8.5-10.1); Osmolality,Calculated 288.4 MOS/KG (273-304); Thyroid Stimulating Hormone 6.75 uIU/ml (0.358-3.74); Total Protein 6.3 G/DL (6.4-8.3)
[2018-03-04] MEDS: CLORAZEPATE 3.75 MG TABLET PO PRN (08:42)
[2018-03-04] MEDS ORDERED: ALBUMIN 25% 25 GM in PREMIX 1 EACH IV ONE ×2 (10:19→17:00)
[2018-03-04] MEDS: ROSUVASTATIN 10 MG TABLET PO SCH (10:34)
[2018-03-04] MEDS: AMIODARONE 200 MG TABLET PO SCH (10:35)
[2018-03-04] MEDS: FUROSEMIDE 40 MG/4 ML VIAL IV SCH ×2 (10:35→20:17)
[2018-03-04] MEDS: CLOPIDOGREL 75 MG TABLET PO SCH (10:35)
[2018-03-04] MEDS: ISOSORBIDE MONONITRATE 30 MG TABLET PO SCH (10:35)
[2018-03-04] MEDS: PROPOFOL 1,000 MG/100 ML BOTTLE IV SCH (10:41)
[2018-03-04] MEDS: DESITIN 4OZ/NYSTATIN 15 GRAM MIXTURE PASTE TOP SCH ×2 (12:57→20:45)
[2018-03-04] MEDS ORDERED: FUROSEMIDE 40 MG/4 ML VIAL IV ONE (17:00)
[2018-03-04] MEDS: PANTOPRAZOLE 40 MG VIAL IV SCH (18:40)
[2018-03-04] MEDS: METOPROLOL TARTRATE 25 MG TABLET PO SCH (20:16)
[2018-03-04] MEDS: ASPIRIN CHEW 81 MG TABLET PO SCH (20:17)
[2018-03-05] MEDS: INSULIN LISPRO 100 UNIT/ML SUBCUT SCH ×4 (00:49→18:03)
[2018-03-05] MEDS: ALBUTEROL/IPRATROPIUM 3 ML NEB RESP TX SCH ×4 (00:56→20:00)
[2018-03-05] MEDS: PROPOFOL 1,000 MG/100 ML BOTTLE IV SCH ×3 (03:17→18:29)
[2018-03-05 04:24] LABS: Basophils % 0.4 % (0.0-0.8); Eosinophils # 0.5 10*3/uL (0.0-0.87); Eosinophils % 4.6 % (0.00-10.9); Hemoglobin 12.1 GM/DL (14.0-18.0); Immature Granulocytes % 0.4 %; Immature Granulocytes Absolute 0.04 #; Lymphocytes # 0.9 10*3/uL (1.4-4.0); Lymphocytes % 8.1 % (21.2-54.2); Mean Corpuscular HGB Conc 33.6 GM/DL (32-36); Mean Corpuscular Hemoglobin 31 PG (27-34); Mean Corpuscular Volume 90.9 FL (87-102); Mean Platelet Volume 10.9 FL (9.6-12.0); Monocytes # 0.9 10*3/uL (0.11-0.8); Monocytes % 8.7 % (1.7-12.7); Neutrophils # 8.4 10*3/uL (1.4-7.4); Neutrophils % 77.8 % (38.7-73.9); Platelet Count 166 T/CUMM (130-400); Red Blood Count 3.96 MC/CUMM (3.8-5.5); Red Cell Distribution Width 14.7 % (9.3-17.3); White Blood Count 10.8 T/CUMM (4-12)
[2018-03-05 04:54] LABS: ABG Base Excess 1.5 MMOL/L (-2.5-2.5); ABG HCO3 25.8 MMOL/L (20-26); ABG PCO2 27.2 MM HG (35-48); ABG PH 7.536 (7.35-7.45); ABG TCO2 20.2 MMOL/L (23-27); Allen Test Positive; Pt O2 Delivery Device Ventilator
[2018-03-05 04:55] LABS: Calcium 8.9 MG/DL (8.5-10.1); Osmolality,Calculated 290.1 MOS/KG (273-304); Potassium 3.8 MMOL/L (3.5-5.1)
[2018-03-05] MEDS: METOPROLOL TARTRATE 25 MG TABLET PO SCH ×2 (09:30→21:37)
[2018-03-05] MEDS: CLOPIDOGREL 75 MG TABLET PO SCH (09:32)
[2018-03-05] MEDS: AMIODARONE 200 MG TABLET PO SCH (09:32)
[2018-03-05] MEDS: ISOSORBIDE MONONITRATE 30 MG TABLET PO SCH (09:33)
[2018-03-05] MEDS: DESITIN 4OZ/NYSTATIN 15 GRAM MIXTURE PASTE TOP SCH ×2 (09:40→21:37)
[2018-03-05] MEDS: ENOXAPARIN 30 MG/0.3 ML SYRINGE SUBCUT SCH (09:40)
[2018-03-05] MEDS: FUROSEMIDE 40 MG/4 ML VIAL IV SCH ×2 (09:41→21:37)
[2018-03-05] MEDS: PANTOPRAZOLE 40 MG VIAL IV SCH (18:25)
[2018-03-05] MEDS: LEVOFLOXACIN INJ 750 MG in PREMIX 1 EACH IV SCH (18:33)
[2018-03-05] MEDS: ASPIRIN CHEW 81 MG TABLET PO SCH (21:37)
[2018-03-06] MEDS: ALBUTEROL/IPRATROPIUM 3 ML NEB RESP TX SCH ×4 (00:21→19:31)
[2018-03-06] MEDS: INSULIN LISPRO 100 UNIT/ML SUBCUT SCH ×4 (00:22→18:00)
[2018-03-06 04:24] LABS: ABG Base Excess 1.3 MMOL/L (-2.5-2.5); ABG HCO3 25.6 MMOL/L (20-26); ABG Oxygen Saturation 99.7 % (95-100); ABG PCO2 27.2 MM HG (35-48); ABG PH 7.531 (7.35-7.45); ABG TCO2 19.7 MMOL/L (23-27); Allen Test Positive; Pt O2 Delivery Device Ventilator
[2018-03-06] MEDS: PROPOFOL 1,000 MG/100 ML BOTTLE IV SCH ×2 (05:30→19:09)
[2018-03-06 06:26] LABS: Basophils # 0.1 10*3/uL (0.0-0.2); Basophils % 0.4 % (0.0-0.8); Eosinophils # 0.7 10*3/uL (0.0-0.87); Eosinophils % 5.8 % (0.00-10.9); Hematocrit 39.6 VOL% (42.0-52.0); Hemoglobin 12.8 GM/DL (14.0-18.0); Immature Granulocytes % 0.4 %; Immature Granulocytes Absolute 0.05 #; Lymphocytes # 0.9 10*3/uL (1.4-4.0); Lymphocytes % 7.5 % (21.2-54.2); Mean Corpuscular HGB Conc 32.3 GM/DL (32-36); Mean Corpuscular Hemoglobin 31 PG (27-34); Mean Corpuscular Volume 94.5 FL (87-102); Mean Platelet Volume 11.1 FL (9.6-12.0); Monocytes % 8.6 % (1.7-12.7); Neutrophils # 9.1 10*3/uL (1.4-7.4); Neutrophils % 77.3 % (38.7-73.9); Platelet Count 169 T/CUMM (130-400); Red Blood Count 4.19 MC/CUMM (3.8-5.5); Red Cell Distribution Width 14.7 % (9.3-17.3); White Blood Count 11.8 T/CUMM (4-12)
[2018-03-06 06:52] LABS: Calcium 8.9 MG/DL (8.5-10.1); Potassium 3.4 MMOL/L (3.5-5.1)
[2018-03-06] MEDS: ALBUTEROL 2.5 MG/3 ML NEB RESP TX PRN (07:35)
[2018-03-06] MEDS ORDERED: FUROSEMIDE 100 MG/10 ML VIAL ONE (08:13)
[2018-03-06] MEDS: METOPROLOL TARTRATE 25 MG TABLET PO SCH ×2 (08:36→22:31)
[2018-03-06] MEDS: CLOPIDOGREL 75 MG TABLET PO SCH (08:37)
[2018-03-06] MEDS: FUROSEMIDE 40 MG/4 ML VIAL IV SCH ×2 (08:37→22:30)
[2018-03-06] MEDS: ISOSORBIDE MONONITRATE 30 MG TABLET PO SCH (08:37)
[2018-03-06] MEDS: AMIODARONE 200 MG TABLET PO SCH (08:39)
[2018-03-06] MEDS: ENOXAPARIN 30 MG/0.3 ML SYRINGE SUBCUT SCH (08:39)
[2018-03-06] MEDS: DESITIN 4OZ/NYSTATIN 15 GRAM MIXTURE PASTE TOP SCH ×2 (13:08→22:31)
[2018-03-06] MEDS ORDERED: ADENOSINE 6 MG/2 ML VIAL ONE (15:49)
[2018-03-06] MEDS ORDERED: AMIODARONE INJ 450 MG in DEXTROSE 5% 241 ML IV SCH (16:00)
[2018-03-06] MEDS ORDERED: ADENOSINE 6 MG/2 ML VIAL IV ONE (17:35)
[2018-03-06] MEDS: PANTOPRAZOLE 40 MG VIAL IV SCH (19:09)
[2018-03-06] MEDS: ASPIRIN CHEW 81 MG TABLET PO SCH (22:31)
[2018-03-07] MEDS: INSULIN LISPRO 100 UNIT/ML SUBCUT SCH ×4 (00:03→18:58)
[2018-03-07] MEDS: ALBUTEROL/IPRATROPIUM 3 ML NEB RESP TX SCH ×4 (00:51→19:56)
[2018-03-07] MEDS: AMIODARONE INJ 450 MG in DEXTROSE 5% 241 ML IV SCH ×2 (01:58→13:00)
[2018-03-07] MEDS: PROPOFOL 1,000 MG/100 ML BOTTLE IV SCH ×2 (04:00→20:25)
[2018-03-07 04:26] LABS: ABG Base Excess 2.4 MMOL/L (-2.5-2.5); ABG HCO3 26.5 MMOL/L (20-26); ABG Oxygen Saturation 99.2 % (95-100); ABG PCO2 35.7 MM HG (35-48); ABG PH 7.467 (7.35-7.45); ABG TCO2 22.3 MMOL/L (23-27); Allen Test Positive; Pt O2 Delivery Device Ventilator
[2018-03-07 05:54] LABS: Basophils # 0.1 10*3/uL (0.0-0.2); Basophils % 0.5 % (0.0-0.8); Eosinophils # 0.7 10*3/uL (0.0-0.87); Eosinophils % 5.2 % (0.00-10.9); Hematocrit 40.6 VOL% (42.0-52.0); Hemoglobin 13.1 GM/DL (14.0-18.0); Immature Granulocytes % 0.6 %; Immature Granulocytes Absolute 0.08 #; Lymphocytes # 0.6 10*3/uL (1.4-4.0); Lymphocytes % 4.7 % (21.2-54.2); Mean Corpuscular HGB Conc 32.3 GM/DL (32-36); Mean Corpuscular Hemoglobin 31 PG (27-34); Mean Corpuscular Volume 94.9 FL (87-102); Monocytes % 7.6 % (1.7-12.7); Neutrophils # 10.3 10*3/uL (1.4-7.4); Neutrophils % 81.4 % (38.7-73.9); Platelet Count 151 T/CUMM (130-400); Red Blood Count 4.28 MC/CUMM (3.8-5.5); Red Cell Distribution Width 15.1 % (9.3-17.3); White Blood Count 12.7 T/CUMM (4-12)
[2018-03-07 06:37] LABS: Macrocytosis 1+; Platelet Estimate Normal
[2018-03-07 07:24] LABS: Osmolality,Calculated 298.7 MOS/KG (273-304); Potassium 3.3 MMOL/L (3.5-5.1)
[2018-03-07] MEDS ORDERED: FUROSEMIDE 20 MG/2 ML VIAL ONE (09:16)
[2018-03-07] MEDS: FUROSEMIDE 40 MG/4 ML VIAL IV SCH ×2 (09:22→20:25)
[2018-03-07] MEDS: CLOPIDOGREL 75 MG TABLET PO SCH (09:23)
[2018-03-07] MEDS: ISOSORBIDE MONONITRATE 30 MG TABLET PO SCH (09:23)
[2018-03-07] MEDS: ROSUVASTATIN 10 MG TABLET PO SCH (09:23)
[2018-03-07] MEDS: METOPROLOL TARTRATE 25 MG TABLET PO SCH (09:23)
[2018-03-07] MEDS: AMIODARONE 200 MG TABLET PO SCH (09:23)
[2018-03-07] MEDS: ENOXAPARIN 30 MG/0.3 ML SYRINGE SUBCUT SCH (09:24)
[2018-03-07] MEDS: DESITIN 4OZ/NYSTATIN 15 GRAM MIXTURE PASTE TOP SCH ×2 (09:24→20:26)
[2018-03-07 10:02] LABS: ABG Base Excess 1.6 MMOL/L (-2.5-2.5); ABG HCO3 25.8 MMOL/L (20-26); ABG Oxygen Saturation 96.4 % (95-100); ABG PCO2 35.8 MM HG (35-48); ABG PH 7.454 (7.35-7.45); ABG PO2 86.3 MM HG (80-95); ABG TCO2 21.3 MMOL/L (23-27)
[2018-03-07] MEDS: POTASSIUM CHLORIDE 20 MEQ/15 ML UDCUP PER TUBE PRN ×3 (11:48→18:19)
[2018-03-07] MEDS: CLORAZEPATE 3.75 MG TABLET PO PRN (14:03)
[2018-03-07] MEDS: POTASSIUM CHLORIDE 20 MEQ/15 ML UDCUP PO SCH (14:03)
[2018-03-07] MEDS: LEVOFLOXACIN INJ 750 MG in PREMIX 1 EACH IV SCH (18:19)
[2018-03-07] MEDS: PANTOPRAZOLE 40 MG VIAL IV SCH (18:19)
[2018-03-07] MEDS: ASPIRIN CHEW 81 MG TABLET PO SCH (20:26)
[2018-03-08] MEDS: METOPROLOL TARTRATE 25 MG TABLET PO SCH ×3 (00:08→20:01)
[2018-03-08] MEDS: INSULIN LISPRO 100 UNIT/ML SUBCUT SCH ×5 (00:08→20:00)
[2018-03-08] MEDS: ALBUTEROL/IPRATROPIUM 3 ML NEB RESP TX SCH ×4 (01:29→19:50)
[2018-03-08] MEDS: AMIODARONE INJ 450 MG in DEXTROSE 5% 241 ML IV SCH (04:34)
[2018-03-08 05:03] LABS: Basophils # 0.1 10*3/uL (0.0-0.2); Basophils % 0.3 % (0.0-0.8); Eosinophils # 0.7 10*3/uL (0.0-0.87); Eosinophils % 4.6 % (0.00-10.9); Hematocrit 44.5 VOL% (42.0-52.0); Hemoglobin 14.1 GM/DL (14.0-18.0); Immature Granulocytes % 0.5 %; Immature Granulocytes Absolute 0.07 #; Lymphocytes # 0.7 10*3/uL (1.4-4.0); Lymphocytes % 4.9 % (21.2-54.2); Mean Corpuscular HGB Conc 31.7 GM/DL (32-36); Mean Corpuscular Hemoglobin 31 PG (27-34); Mean Corpuscular Volume 96.1 FL (87-102); Mean Platelet Volume 11.4 FL (9.6-12.0); Monocytes # 1.3 10*3/uL (0.11-0.8); Monocytes % 8.4 % (1.7-12.7); Neutrophils # 12.3 10*3/uL (1.4-7.4); Neutrophils % 81.3 % (38.7-73.9); Platelet Count 156 T/CUMM (130-400); Red Blood Count 4.63 MC/CUMM (3.8-5.5); White Blood Count 15.1 T/CUMM (4-12)
[2018-03-08 05:33] LABS: Eosinophils 4 % (0-10); Hypochromasia 1+; Lymphocytes 2 % (20-55); Macrocytosis Slight; Platelet Estimate Normal; Segmented Neutrophils 85 % (50-85); Total Cells Counted 100
[2018-03-08 05:35] LABS: Calcium 8.9 MG/DL (8.5-10.1); Osmolality,Calculated 302.7 MOS/KG (273-304)
[2018-03-08] MEDS: CLORAZEPATE 3.75 MG TABLET PO PRN (05:45)
[2018-03-08 06:16] LABS: Prealbumin 14.6 MG/DL (20-40)
[2018-03-08 06:18] LABS: ABG Base Excess 2.3 MMOL/L (-2.5-2.5); ABG HCO3 26.4 MMOL/L (20-26); ABG Oxygen Saturation 92.9 % (95-100); ABG PCO2 37.3 MM HG (35-48); ABG PH 7.453 (7.35-7.45); ABG PO2 66.1 MM HG (80-95); ABG TCO2 22.4 MMOL/L (23-27); Allen Test Positive; Pt O2 Delivery Device Other
[2018-03-08 10:49] LABS: ABG Base Excess 4.7 MMOL/L (-2.5-2.5); ABG HCO3 27.5 MMOL/L (20-26); ABG Oxygen Saturation 92.1 % (95-100); ABG PH 7.513 (7.35-7.45); ABG PO2 64.7 MM HG (80-95); ABG TCO2 28.6 MMOL/L (23-27)
[2018-03-08] MEDS: ISOSORBIDE MONONITRATE 30 MG TABLET PO SCH (11:35)
[2018-03-08] MEDS: AMIODARONE 200 MG TABLET PO SCH (11:35)
[2018-03-08] MEDS: CLOPIDOGREL 75 MG TABLET PO SCH (11:35)
[2018-03-08] MEDS: POTASSIUM CHLORIDE 20 MEQ/15 ML UDCUP PO SCH (11:36)
[2018-03-08] MEDS: FUROSEMIDE 40 MG/4 ML VIAL IV SCH ×2 (11:40→20:00)
[2018-03-08] MEDS: DESITIN 4OZ/NYSTATIN 15 GRAM MIXTURE PASTE TOP SCH ×2 (11:46→20:01)
[2018-03-08] MEDS: ENOXAPARIN 30 MG/0.3 ML SYRINGE SUBCUT SCH (11:46)
[2018-03-08] MEDS: PANTOPRAZOLE 40 MG VIAL IV SCH (17:15)
[2018-03-08] MEDS: ASPIRIN CHEW 81 MG TABLET PO SCH (20:01)
[2018-03-09] MEDS: ALBUTEROL/IPRATROPIUM 3 ML NEB RESP TX SCH ×4 (00:26→19:36)
[2018-03-09 04:50] LABS: Allen Test Positive
[2018-03-09 05:09] LABS: ABG Base Excess 5.9 MMOL/L (-2.5-2.5); ABG HCO3 29.6 MMOL/L (20-26); ABG Oxygen Saturation 97.9 % (95-100); ABG PCO2 39.6 MM HG (35-48); ABG PH 7.492 (7.35-7.45); ABG PO2 104.9 MM HG (80-95); ABG TCO2 30.9 MMOL/L (23-27)
[2018-03-09] MEDS: INSULIN LISPRO 100 UNIT/ML SUBCUT SCH ×4 (09:29→21:22)
[2018-03-09] MEDS: METOPROLOL TARTRATE 25 MG TABLET PO SCH ×2 (09:30→21:17)
[2018-03-09] MEDS: FUROSEMIDE 40 MG/4 ML VIAL IV SCH ×2 (09:30→21:17)
[2018-03-09] MEDS: ISOSORBIDE MONONITRATE 30 MG TABLET PO SCH (09:30)
[2018-03-09] MEDS: ROSUVASTATIN 10 MG TABLET PO SCH (09:31)
[2018-03-09] MEDS: ENOXAPARIN 30 MG/0.3 ML SYRINGE SUBCUT SCH (09:31)
[2018-03-09] MEDS: CLOPIDOGREL 75 MG TABLET PO SCH (09:32)
[2018-03-09] MEDS: AMIODARONE 200 MG TABLET PO SCH (09:32)
[2018-03-09] MEDS: DESITIN 4OZ/NYSTATIN 15 GRAM MIXTURE PASTE TOP SCH ×2 (09:32→21:22)
[2018-03-09] MEDS: POTASSIUM CHLORIDE 20 MEQ/15 ML UDCUP PO SCH (09:33)
[2018-03-09] MEDS: cefTRIAXone 1,000 MG in SYRINGE 1 EACH IV SCH (09:40)
[2018-03-09 11:30] LABS: Calcium 8.6 MG/DL (8.5-10.1); Osmolality,Calculated 299.6 MOS/KG (273-304); Potassium 3.5 MMOL/L (3.5-5.1)
[2018-03-09] MEDS: PANTOPRAZOLE 40 MG VIAL IV SCH (19:08)
[2018-03-09] MEDS: ASPIRIN CHEW 81 MG TABLET PO SCH (21:22)
[2018-03-10] MEDS: ALBUTEROL/IPRATROPIUM 3 ML NEB RESP TX SCH ×4 (00:21→21:05)
[2018-03-10 04:58] LABS: Basophils # 0.1 10*3/uL (0.0-0.2); Basophils % 0.6 % (0.0-0.8); Eosinophils % 9.2 % (0.00-10.9); Hemoglobin 12.5 GM/DL (14.0-18.0); Immature Granulocytes % 0.4 %; Immature Granulocytes Absolute 0.04 #; Lymphocytes % 8.7 % (21.2-54.2); Mean Corpuscular HGB Conc 32.1 GM/DL (32-36); Mean Corpuscular Hemoglobin 31 PG (27-34); Mean Corpuscular Volume 96.1 FL (87-102); Mean Platelet Volume 11.2 FL (9.6-12.0); Monocytes # 1.1 10*3/uL (0.11-0.8); Monocytes % 10.2 % (1.7-12.7); NRBC # 0.02 10*3/uL; Neutrophils # 7.9 10*3/uL (1.4-7.4); Neutrophils % 70.9 % (38.7-73.9); Platelet Count 120 T/CUMM (130-400); Red Blood Count 4.06 MC/CUMM (3.8-5.5); Red Cell Distribution Width 14.3 % (9.3-17.3); White Blood Count 11.1 T/CUMM (4-12)
[2018-03-10 05:20] LABS: Calcium 8.8 MG/DL (8.5-10.1); Osmolality,Calculated 291.1 MOS/KG (273-304); Potassium 3.6 MMOL/L (3.5-5.1)
[2018-03-10] MEDS: LEVOTHYROXINE 25 MCG TABLET PO SCH (06:16)
[2018-03-10] MEDS: INSULIN LISPRO 100 UNIT/ML SUBCUT SCH ×3 (08:47→17:03)
[2018-03-10] MEDS: CLOPIDOGREL 75 MG TABLET PO SCH (09:06)
[2018-03-10] MEDS: POTASSIUM CHLORIDE 20 MEQ/15 ML UDCUP PO SCH (09:06)
[2018-03-10] MEDS: AMIODARONE 200 MG TABLET PO SCH (09:06)
[2018-03-10] MEDS: cefTRIAXone 1,000 MG in SYRINGE 1 EACH IV SCH (09:07)
[2018-03-10] MEDS: ISOSORBIDE MONONITRATE 30 MG TABLET PO SCH (09:07)
[2018-03-10] MEDS: ENOXAPARIN 30 MG/0.3 ML SYRINGE SUBCUT SCH (09:07)
[2018-03-10] MEDS: METOPROLOL TARTRATE 25 MG TABLET PO SCH ×2 (09:07→21:19)
[2018-03-10] MEDS: FUROSEMIDE 40 MG/4 ML VIAL IV SCH ×2 (09:07→21:19)
[2018-03-10] MEDS: DESITIN 4OZ/NYSTATIN 15 GRAM MIXTURE PASTE TOP SCH ×2 (09:08→21:18)
[2018-03-10] MEDS: PANTOPRAZOLE 40 MG VIAL IV SCH (17:17)
[2018-03-10] MEDS: ASPIRIN CHEW 81 MG TABLET PO SCH (21:19)
[2018-03-11] MEDS: INSULIN LISPRO 100 UNIT/ML SUBCUT SCH ×5 (01:16→22:50)
[2018-03-11] MEDS: ALBUTEROL/IPRATROPIUM 3 ML NEB RESP TX SCH ×4 (01:27→20:12)
[2018-03-11] MEDS: LEVOTHYROXINE 25 MCG TABLET PO SCH (06:01)
[2018-03-11] MEDS: POTASSIUM CHLORIDE 20 MEQ/15 ML UDCUP PO SCH (08:51)
[2018-03-11] MEDS: FUROSEMIDE 40 MG/4 ML VIAL IV SCH ×2 (08:52→21:35)
[2018-03-11] MEDS: ENOXAPARIN 30 MG/0.3 ML SYRINGE SUBCUT SCH (08:52)
[2018-03-11] MEDS: ISOSORBIDE MONONITRATE 30 MG TABLET PO SCH (08:53)
[2018-03-11] MEDS: CLOPIDOGREL 75 MG TABLET PO SCH (08:53)
[2018-03-11] MEDS: ROSUVASTATIN 10 MG TABLET PO SCH (08:53)
[2018-03-11] MEDS: cefTRIAXone 1,000 MG in SYRINGE 1 EACH IV SCH (08:54)
[2018-03-11] MEDS: METOPROLOL TARTRATE 25 MG TABLET PO SCH ×2 (08:54→21:34)
[2018-03-11] MEDS: AMIODARONE 200 MG TABLET PO SCH (08:54)
[2018-03-11] MEDS: DESITIN 4OZ/NYSTATIN 15 GRAM MIXTURE PASTE TOP SCH ×2 (08:54→22:50)
[2018-03-11 12:46] LABS: Basophils # 0.1 10*3/uL (0.0-0.2); Basophils % 0.7 % (0.0-0.8); Eosinophils # 0.9 10*3/uL (0.0-0.87); Eosinophils % 9.3 % (0.00-10.9); Hematocrit 44.9 VOL% (42.0-52.0); Hemoglobin 14.2 GM/DL (14.0-18.0); Immature Granulocytes % 0.3 %; Immature Granulocytes Absolute 0.03 #; Lymphocytes # 0.6 10*3/uL (1.4-4.0); Lymphocytes % 6.4 % (21.2-54.2); Mean Corpuscular HGB Conc 31.6 GM/DL (32-36); Mean Corpuscular Hemoglobin 31 PG (27-34); Mean Corpuscular Volume 96.6 FL (87-102); Mean Platelet Volume 11.1 FL (9.6-12.0); Monocytes # 0.8 10*3/uL (0.11-0.8); Monocytes % 8.6 % (1.7-12.7); Neutrophils # 7.3 10*3/uL (1.4-7.4); Neutrophils % 74.7 % (38.7-73.9); Platelet Count 195 T/CUMM (130-400); Red Blood Count 4.65 MC/CUMM (3.8-5.5); Red Cell Distribution Width 14.1 % (9.3-17.3); White Blood Count 9.7 T/CUMM (4-12)
[2018-03-11 13:15] LABS: Calcium 8.9 MG/DL (8.5-10.1); Osmolality,Calculated 288.5 MOS/KG (273-304); Potassium 4.7 MMOL/L (3.5-5.1)
[2018-03-11] MEDS: PANTOPRAZOLE 40 MG VIAL IV SCH (18:30)
[2018-03-11] MEDS: ASPIRIN CHEW 81 MG TABLET PO SCH (21:35)
[2018-03-12] MEDS: ALBUTEROL/IPRATROPIUM 3 ML NEB RESP TX SCH ×4 (01:50→19:14)
[2018-03-12] MEDS: LEVOTHYROXINE 25 MCG TABLET PO SCH (06:15)
[2018-03-12] MEDS: INSULIN LISPRO 100 UNIT/ML SUBCUT SCH ×4 (09:17→21:13)
[2018-03-12] MEDS: POTASSIUM CHLORIDE 20 MEQ/15 ML UDCUP PO SCH (09:18)
[2018-03-12] MEDS: METOPROLOL TARTRATE 25 MG TABLET PO SCH ×2 (09:21→21:20)
[2018-03-12] MEDS: ENOXAPARIN 30 MG/0.3 ML SYRINGE SUBCUT SCH (09:21)
[2018-03-12] MEDS: ISOSORBIDE MONONITRATE 30 MG TABLET PO SCH (09:22)
[2018-03-12] MEDS: AMIODARONE 200 MG TABLET PO SCH (09:22)
[2018-03-12] MEDS: CLOPIDOGREL 75 MG TABLET PO SCH (09:22)
[2018-03-12] MEDS: FUROSEMIDE 40 MG/4 ML VIAL IV SCH ×2 (09:26→21:14)
[2018-03-12] MEDS: cefTRIAXone 1,000 MG in SYRINGE 1 EACH IV SCH (09:29)
[2018-03-12] MEDS: DESITIN 4OZ/NYSTATIN 15 GRAM MIXTURE PASTE TOP SCH ×2 (09:56→21:28)
[2018-03-12] MEDS: PANTOPRAZOLE 40 MG VIAL IV SCH (17:28)
[2018-03-12] MEDS: ASPIRIN CHEW 81 MG TABLET PO SCH (21:20)
[2018-03-13] MEDS: ALBUTEROL/IPRATROPIUM 3 ML NEB RESP TX SCH ×4 (00:13→19:56)
[2018-03-13 04:58] LABS: Basophils # 0.1 10*3/uL (0.0-0.2); Basophils % 0.9 % (0.0-0.8); Eosinophils % 12.7 % (0.00-10.9); Hematocrit 43.9 VOL% (42.0-52.0); Immature Granulocytes % 0.4 %; Immature Granulocytes Absolute 0.03 #; Lymphocytes % 12.8 % (21.2-54.2); Mean Corpuscular HGB Conc 31.9 GM/DL (32-36); Mean Corpuscular Hemoglobin 30 PG (27-34); Mean Corpuscular Volume 94.8 FL (87-102); Mean Platelet Volume 10.6 FL (9.6-12.0); Monocytes # 0.7 10*3/uL (0.11-0.8); Monocytes % 9.3 % (1.7-12.7); Neutrophils # 4.9 10*3/uL (1.4-7.4); Neutrophils % 63.9 % (38.7-73.9); Platelet Count 227 T/CUMM (130-400); Red Blood Count 4.63 MC/CUMM (3.8-5.5); Red Cell Distribution Width 13.8 % (9.3-17.3); White Blood Count 7.6 T/CUMM (4-12)
[2018-03-13 05:28] LABS: Calcium 9.2 MG/DL (8.5-10.1); Osmolality,Calculated 289.3 MOS/KG (273-304); Potassium 4.4 MMOL/L (3.5-5.1)
[2018-03-13 05:47] LABS: Eosinophils 15 % (0-10); Lymphocytes 10 % (20-55); Segmented Neutrophils 69 % (50-85); Total Cells Counted 100
[2018-03-13 05:48] LABS: Hypochromasia 1+; Microcytosis Slight; Platelet Estimate Normal
[2018-03-13] MEDS: LEVOTHYROXINE 25 MCG TABLET PO SCH (06:38)
[2018-03-13] MEDS: POTASSIUM CHLORIDE 20 MEQ/15 ML UDCUP PO SCH (09:28)
[2018-03-13] MEDS: AMIODARONE 200 MG TABLET PO SCH (09:30)
[2018-03-13] MEDS: METOPROLOL TARTRATE 25 MG TABLET PO SCH ×2 (09:30→20:44)
[2018-03-13] MEDS: CLOPIDOGREL 75 MG TABLET PO SCH (09:30)
[2018-03-13] MEDS: ISOSORBIDE MONONITRATE 30 MG TABLET PO SCH (09:31)
[2018-03-13] MEDS: INSULIN LISPRO 100 UNIT/ML SUBCUT SCH ×4 (09:33→20:45)
[2018-03-13] MEDS: cefTRIAXone 1,000 MG in SYRINGE 1 EACH IV SCH (09:33)
[2018-03-13] MEDS: FUROSEMIDE 40 MG/4 ML VIAL IV SCH ×2 (09:34→20:44)
[2018-03-13] MEDS: DESITIN 4OZ/NYSTATIN 15 GRAM MIXTURE PASTE TOP SCH ×2 (09:46→20:46)
[2018-03-13] MEDS: ENOXAPARIN 30 MG/0.3 ML SYRINGE SUBCUT SCH (09:46)
[2018-03-13] MEDS: PANTOPRAZOLE 40 MG VIAL IV SCH (18:47)
[2018-03-13] MEDS: ASPIRIN CHEW 81 MG TABLET PO SCH (20:44)
[2018-03-14] MEDS: ALBUTEROL/IPRATROPIUM 3 ML NEB RESP TX SCH ×2 (00:43→07:53)
[2018-03-14] MEDS: LEVOTHYROXINE 25 MCG TABLET PO SCH (06:11)
[2018-03-14] MEDS: INSULIN LISPRO 100 UNIT/ML SUBCUT SCH (08:39)
[2018-03-14] MEDS: ENOXAPARIN 30 MG/0.3 ML SYRINGE SUBCUT SCH (08:40)
[2018-03-14] MEDS: cefTRIAXone 1,000 MG in SYRINGE 1 EACH IV SCH (08:40)
[2018-03-14] MEDS: POTASSIUM CHLORIDE 20 MEQ/15 ML UDCUP PO SCH (08:41)
[2018-03-14] MEDS: FUROSEMIDE 40 MG/4 ML VIAL IV SCH (08:42)
[2018-03-14] MEDS: METOPROLOL TARTRATE 25 MG TABLET PO SCH (08:43)
[2018-03-14] MEDS: CLOPIDOGREL 75 MG TABLET PO SCH (08:43)
[2018-03-14] MEDS: ROSUVASTATIN 10 MG TABLET PO SCH (08:43)
[2018-03-14] MEDS: AMIODARONE 200 MG TABLET PO SCH (08:44)
[2018-03-14] MEDS: ISOSORBIDE MONONITRATE 30 MG TABLET PO SCH (08:44)
[2018-03-14] MEDS: DESITIN 4OZ/NYSTATIN 15 GRAM MIXTURE PASTE TOP SCH (08:53)
[2018-03-14 12:40] VITALS: BP 121/73
== END 2018-03-14 14:11 | disposition home health service (06) | DRG 166 ==
LOC: N.ED 15:18 → N.EDINP 16:53 → SUATTDRO 16:53 → N.CC 17:58 → N.TELES 03-09 19:22
PROVIDERS: ADMIT Internal Medicine; ATTEND Internal Medicine

== ENCOUNTER 2019-07-17 23:52 | Inpatient (IN) ==
[2019-07-18] MEDS ORDERED: ONDANSETRON 4 MG/2 ML VIAL IV STA (00:17)
[2019-07-18] MEDS ORDERED: ASPIRIN 325 MG TABLET PO STA (00:17)
[2019-07-18] MEDS ORDERED: NITROGLYCERIN 2% OINT 1 INCH/GM PACK TOP STA (00:17)
[2019-07-18] MEDS ORDERED: FUROSEMIDE 100 MG/10 ML VIAL IV STA (00:17)
[2019-07-18] MEDS ORDERED: MORPHINE 4 MG/1 ML VIAL IV STA (00:17)
[2019-07-18] MEDS ORDERED: methylPREDNISolone SOD SUC 125 MG/2 ML VIAL IV STA (00:17)
[2019-07-18] MEDS ORDERED: ALBUTEROL 2.5 MG/3 ML NEB RESP TX SCH (00:30)
[2019-07-18 00:37] LABS: INR 0.9; PT Patient Result 10.2 SECS (9.6-12.2)
[2019-07-18 00:40] LABS: Albumin 3.5 G/DL (3.4-5.0); Bilirubin,Total 0.5 MG/DL (0.2-1.0); Calcium 8.7 MG/DL (8.5-10.1); Osmolality,Calculated 289.8 MOS/KG (273-304); Total Protein 7.8 G/DL (6.4-8.3)
[2019-07-18 00:43] LABS: ABG Base Excess -4.5 MMOL/L (-2.5-2.5); ABG HCO3 20.5 MMOL/L (20-26); ABG Oxygen Saturation 88.3 % (95-100); ABG PCO2 35.5 MM HG (35-48); ABG PH 7.362 (7.35-7.45); ABG PO2 56.9 MM HG (80-95); ABG TCO2 16.9 MMOL/L (23-27); Allen Test Positive; Pt O2 Delivery Device Other
[2019-07-18 00:48] LABS: Basophils # 0.1 10*3/uL (0.0-0.2); Basophils % 0.7 % (0.0-0.8); Eosinophils # 0.3 10*3/uL (0.0-0.87); Eosinophils % 3.1 % (0.00-10.9); Hematocrit 50.8 VOL% (42.0-52.0); Hemoglobin 16.5 GM/DL (14.0-18.0); Immature Granulocytes % 0.7 %; Immature Granulocytes Absolute 0.08 #; Lymphocytes # 2.3 10*3/uL (1.4-4.0); Lymphocytes % 21.2 % (21.2-54.2); Mean Corpuscular HGB Conc 32.5 GM/DL (32-36); Mean Corpuscular Volume 96.4 FL (87-102); Mean Platelet Volume 10.5 FL (9.6-12.0); Monocytes % 8.7 % (1.7-12.7); Neutrophils % 65.6 % (38.7-73.9); Platelet Count 271 T/CUMM (130-400); Red Blood Count 5.27 MC/CUMM (3.8-5.5); Red Cell Distribution Width 13.2 % (9.3-17.3); White Blood Count 10.7 T/CUMM (4-12)
[2019-07-18] MEDS ORDERED: cefTRIAXone 1,000 MG in SODIUM CHLORIDE 0.9% 100 ML IV STA (01:23)
[2019-07-18] MEDS ORDERED: DEXTROSE 50% 25 GM/50 ML VIAL IV PRN (02:03)
[2019-07-18] MEDS ORDERED: ONDANSETRON 4 MG/2 ML VIAL IV PRN (02:03)
[2019-07-18] MEDS ORDERED: GLUCAGON 1 MG VIAL IM PRN (02:03)
[2019-07-18] MEDS ORDERED: MORPHINE 4 MG/1 ML VIAL IV PRN (02:03)
[2019-07-18] MEDS ORDERED: SODIUM CHLORIDE 0.9% 1,000 ML IV SCH (02:03)
[2019-07-18] MEDS ORDERED: hydrALAZINE 20 MG/1 ML VIAL IV PRN (02:31)
[2019-07-18 04:21] LABS: Basophils % 0.3 % (0.0-0.8); Eosinophils % 0.1 % (0.00-10.9); Hematocrit 48.2 VOL% (42.0-52.0); Hemoglobin 15.9 GM/DL (14.0-18.0); Immature Granulocytes % 0.5 %; Immature Granulocytes Absolute 0.08 #; Lymphocytes # 0.9 10*3/uL (1.4-4.0); Lymphocytes % 5.9 % (21.2-54.2); Mean Corpuscular Volume 95.1 FL (87-102); Mean Platelet Volume 10.3 FL (9.6-12.0); Neutrophils % 91.2 % (38.7-73.9); Platelet Count 222 T/CUMM (130-400); Red Blood Count 5.07 MC/CUMM (3.8-5.5); Red Cell Distribution Width 13.3 % (9.3-17.3); White Blood Count 15.2 T/CUMM (4-12)
[2019-07-18 04:24] LABS: Albumin 3.4 G/DL (3.4-5.0); Bilirubin,Total 0.4 MG/DL (0.2-1.0); Calcium 8.9 MG/DL (8.5-10.1); Osmolality,Calculated 291.4 MOS/KG (273-304); Risk Ratio 3.03; VLDL CHOLESTEROL 19.6 MG/DL
[2019-07-18 04:50] LABS: Band Neutrophils 3 % (0-10); Lymphocytes 5 % (20-55); Platelet Estimate Normal; Segmented Neutrophils 89 % (50-85); Total Cells Counted 100
[2019-07-18] MEDS: ALBUTEROL/IPRATROPIUM 3 ML NEB RESP TX SCH ×2 (04:50→10:05)
[2019-07-18 05:24] LABS: Apearance,Urine CLEAR (Clear); Bilirubin,Urine Negative (Negative); Blood, Urine Small mg/dL (Negative); Glucose,Urine (UA) 50 mg/dL (Negative); Hyaline Casts,Urine 8 /LPF (0-3); Ketones,Urine Negative (Negative); Mucus,Urine Occasional /LPF (Occasional); Nitrite,Urine Negative (Negative); Protein,Urine Negative; RBC,Urine <1 /HPF (0-4); Urine Color Straw (Yellow); Urine Specific Gravity 1.006 (1.001-1.035); Urine Urobilinogen < 2.0 EU/DL (0.2-1.0)
[2019-07-18] MEDS: INSULIN REGULAR 100 UNIT/ML SUBCUT SCH ×3 (06:40→18:47)
[2019-07-18] MEDS: ENOXAPARIN 40 MG/0.4 ML SYRINGE SUBCUT SCH (06:41)
[2019-07-18] MEDS ORDERED: CLORAZEPATE 3.75 MG TABLET PO PRN (07:46)
[2019-07-18] MEDS ORDERED: NITROGLYCERIN SL 0.4 MG TABLET SL PRN (07:54)
[2019-07-18] MEDS ORDERED: FUROSEMIDE 20 MG/2 ML VIAL ONE (08:24)
[2019-07-18] MEDS: POTASSIUM CHLORIDE 20 MEQ TABLET PO SCH (08:56)
[2019-07-18] MEDS: EZETIMIBE 10 MG TABLET PO SCH (08:57)
[2019-07-18] MEDS: DOCUSATE SODIUM 100 MG CAPSULE PO SCH ×2 (08:57→21:35)
[2019-07-18] MEDS: AMIODARONE 200 MG TABLET PO SCH (08:57)
[2019-07-18] MEDS: CLOPIDOGREL 75 MG TABLET PO SCH (08:57)
[2019-07-18] MEDS: LEVOTHYROXINE 50 MCG TABLET PO SCH (08:57)
[2019-07-18] MEDS: CARVEDILOL 12.5 MG TABLET PO SCH ×2 (08:57→21:36)
[2019-07-18] MEDS: FUROSEMIDE 40 MG/4 ML VIAL IV SCH ×2 (08:58→17:06)
[2019-07-18] MEDS: methylPREDNISolone SOD SUC 40 MG/1 ML VIAL IV SCH ×2 (08:58→17:07)
[2019-07-18] MEDS: PANTOPRAZOLE 40 MG VIAL IV SCH (08:59)
[2019-07-18] MEDS ORDERED: CARVEDILOL 6.25 MG TABLET PO SCH (09:00)
[2019-07-18] MEDS ORDERED: ISOSORBIDE MONONITRATE 30 MG TABLET PO SCH (09:00)
[2019-07-18] MEDS: LEVOFLOXACIN INJ 250 MG in PREMIX 1 EACH IV SCH (09:08)
[2019-07-18] MEDS: hydrALAZINE 10 MG TABLET PO SCH ×2 (09:08→21:35)
[2019-07-18 11:04] LABS: CKMB % 11.5 %
[2019-07-18 11:07] LABS: Troponin I 3.52 NG/ML (0.00-0.045)
[2019-07-18] MEDS: LEVALBUTEROL 0.63 MG/3 ML NEB RESP TX SCH ×2 (13:40→20:04)
[2019-07-18] MEDS ORDERED: ISOSORBIDE MONONITRATE 30 MG TABLET PO ONE (14:41)
[2019-07-18 15:06] LABS: Troponin I 3.51 NG/ML (0.00-0.045)
[2019-07-18 17:41] LABS: CKMB % 10.4 %
[2019-07-18 17:43] LABS: Troponin I 2.59 NG/ML (0.00-0.045)
[2019-07-18] MEDS: ASPIRIN EC 81 MG TABLET PO SCH (21:35)
[2019-07-19] MEDS: methylPREDNISolone SOD SUC 40 MG/1 ML VIAL IV SCH ×3 (00:20→17:18)
[2019-07-19] MEDS: INSULIN REGULAR 100 UNIT/ML SUBCUT SCH ×4 (00:20→18:48)
[2019-07-19] MEDS: LEVALBUTEROL 0.63 MG/3 ML NEB RESP TX SCH ×4 (00:59→20:03)
[2019-07-19 04:26] LABS: Basophils % 0.2 % (0.0-0.8); Hematocrit 46.6 VOL% (42.0-52.0); Hemoglobin 15.2 GM/DL (14.0-18.0); Immature Granulocytes % 1.3 %; Immature Granulocytes Absolute 0.31 #; Lymphocytes # 0.8 10*3/uL (1.4-4.0); Lymphocytes % 3.3 % (21.2-54.2); Mean Corpuscular HGB Conc 32.6 GM/DL (32-36); Mean Corpuscular Volume 94.9 FL (87-102); Mean Platelet Volume 10.6 FL (9.6-12.0); Monocytes % 1.9 % (1.7-12.7); Neutrophils % 93.3 % (38.7-73.9); Platelet Count 214 T/CUMM (130-400); Red Blood Count 4.91 MC/CUMM (3.8-5.5); Red Cell Distribution Width 13.2 % (9.3-17.3); White Blood Count 24.1 T/CUMM (4-12)
[2019-07-19 04:48] LABS: Calcium 8.9 MG/DL (8.5-10.1); Osmolality,Calculated 293.7 MOS/KG (273-304)
[2019-07-19 05:14] LABS: Band Neutrophils 1 % (0-10); Eosinophils 1 % (0-10); Lymphocytes 2 % (20-55); Platelet Estimate Adequate; Polychromasia Few; Segmented Neutrophils 94 % (50-85); Total Cells Counted 100
[2019-07-19] MEDS: LEVOTHYROXINE 50 MCG TABLET PO SCH (06:23)
[2019-07-19] MEDS: ENOXAPARIN 40 MG/0.4 ML SYRINGE SUBCUT SCH (06:23)
[2019-07-19] MEDS: hydrALAZINE 10 MG TABLET PO SCH ×2 (09:31→21:10)
[2019-07-19] MEDS: ISOSORBIDE MONONITRATE 30 MG TABLET PO SCH (09:31)
[2019-07-19] MEDS: EZETIMIBE 10 MG TABLET PO SCH (09:31)
[2019-07-19] MEDS: ROSUVASTATIN 10 MG TABLET PO SCH (09:31)
[2019-07-19] MEDS: DOCUSATE SODIUM 100 MG CAPSULE PO SCH ×2 (09:31→21:10)
[2019-07-19] MEDS: POTASSIUM CHLORIDE 20 MEQ TABLET PO SCH (09:31)
[2019-07-19] MEDS: CARVEDILOL 12.5 MG TABLET PO SCH ×2 (09:32→21:10)
[2019-07-19] MEDS: CLOPIDOGREL 75 MG TABLET PO SCH (09:32)
[2019-07-19] MEDS: AMIODARONE 200 MG TABLET PO SCH (09:32)
[2019-07-19] MEDS: glipiZIDE 5 MG TABLET PO SCH (09:32)
[2019-07-19] MEDS: FUROSEMIDE 40 MG/4 ML VIAL IV SCH ×2 (09:39→17:15)
[2019-07-19] MEDS: LEVOFLOXACIN INJ 250 MG in PREMIX 1 EACH IV SCH (09:40)
[2019-07-19] MEDS: PANTOPRAZOLE 40 MG VIAL IV SCH (09:42)
[2019-07-19] MEDS: ASPIRIN EC 81 MG TABLET PO SCH (21:10)
[2019-07-20] MEDS: INSULIN REGULAR 100 UNIT/ML SUBCUT SCH ×4 (01:02→18:33)
[2019-07-20] MEDS: LEVALBUTEROL 0.63 MG/3 ML NEB RESP TX SCH ×4 (01:39→20:45)
[2019-07-20] MEDS: methylPREDNISolone SOD SUC 40 MG/1 ML VIAL IV SCH ×3 (01:40→16:58)
[2019-07-20 04:31] LABS: Basophils % 0.2 % (0.0-0.8); Hemoglobin 14.5 GM/DL (14.0-18.0); Immature Granulocytes % 1.5 %; Immature Granulocytes Absolute 0.34 #; Lymphocytes # 0.7 10*3/uL (1.4-4.0); Mean Platelet Volume 10.6 FL (9.6-12.0); Monocytes % 2.7 % (1.7-12.7); Neutrophils % 92.6 % (38.7-73.9); Platelet Count 208 T/CUMM (130-400); Red Blood Count 4.63 MC/CUMM (3.8-5.5); Red Cell Distribution Width 13.3 % (9.3-17.3); White Blood Count 22.9 T/CUMM (4-12)
[2019-07-20 04:46] LABS: Calcium 8.7 MG/DL (8.5-10.1); Osmolality,Calculated 303.4 MOS/KG (273-304)
[2019-07-20 04:58] LABS: Lymphocytes 1 % (20-55); Platelet Estimate Adequate; Segmented Neutrophils 97 % (50-85); Total Cells Counted 100
[2019-07-20 04:59] LABS: Hypochromasia 1+
[2019-07-20] MEDS: ENOXAPARIN 30 MG/0.3 ML SYRINGE SUBCUT SCH (06:20)
[2019-07-20] MEDS: CLOPIDOGREL 75 MG TABLET PO SCH (08:00)
[2019-07-20] MEDS: hydrALAZINE 10 MG TABLET PO SCH ×2 (08:00→20:55)
[2019-07-20] MEDS: LEVOTHYROXINE 50 MCG TABLET PO SCH (08:00)
[2019-07-20] MEDS: PANTOPRAZOLE 40 MG TABLET PO SCH (08:00)
[2019-07-20] MEDS: CARVEDILOL 12.5 MG TABLET PO SCH ×2 (08:00→20:54)
[2019-07-20] MEDS: AMIODARONE 200 MG TABLET PO SCH (08:00)
[2019-07-20] MEDS: ISOSORBIDE MONONITRATE 30 MG TABLET PO SCH (08:00)
[2019-07-20] MEDS: DOCUSATE SODIUM 100 MG CAPSULE PO SCH ×2 (08:00→20:54)
[2019-07-20] MEDS: glipiZIDE 5 MG TABLET PO SCH (08:00)
[2019-07-20] MEDS: EZETIMIBE 10 MG TABLET PO SCH (08:00)
[2019-07-20] MEDS: POTASSIUM CHLORIDE 20 MEQ TABLET PO SCH (08:01)
[2019-07-20] MEDS: FUROSEMIDE 40 MG/4 ML VIAL IV SCH ×2 (08:04→16:53)
[2019-07-20] MEDS: LEVOFLOXACIN INJ 250 MG in PREMIX 1 EACH IV SCH (08:06)
[2019-07-20] MEDS: ASPIRIN EC 81 MG TABLET PO SCH (20:55)
[2019-07-21] MEDS: LEVALBUTEROL 0.63 MG/3 ML NEB RESP TX SCH ×4 (00:59→19:30)
[2019-07-21] MEDS: methylPREDNISolone SOD SUC 40 MG/1 ML VIAL IV SCH ×3 (01:24→16:26)
[2019-07-21] MEDS: INSULIN REGULAR 100 UNIT/ML SUBCUT SCH ×4 (01:26→18:28)
[2019-07-21 04:12] LABS: Basophils % 0.1 % (0.0-0.8); Hematocrit 41.6 VOL% (42.0-52.0); Hemoglobin 13.8 GM/DL (14.0-18.0); Immature Granulocytes % 2.1 %; Immature Granulocytes Absolute 0.45 #; Lymphocytes # 0.5 10*3/uL (1.4-4.0); Lymphocytes % 2.3 % (21.2-54.2); Mean Corpuscular HGB Conc 33.2 GM/DL (32-36); Mean Corpuscular Volume 93.5 FL (87-102); Mean Platelet Volume 10.9 FL (9.6-12.0); Monocytes % 3.2 % (1.7-12.7); Neutrophils % 92.3 % (38.7-73.9); Platelet Count 216 T/CUMM (130-400); Red Blood Count 4.45 MC/CUMM (3.8-5.5); Red Cell Distribution Width 13.3 % (9.3-17.3)
[2019-07-21 04:30] LABS: Osmolality,Calculated 306.3 MOS/KG (273-304)
[2019-07-21 04:38] LABS: Hypochromasia Slight; Lymphocytes 2 % (20-55); Platelet Estimate Adequate; Segmented Neutrophils 96 % (50-85); Total Cells Counted 100
[2019-07-21] MEDS: LEVOTHYROXINE 50 MCG TABLET PO SCH (06:31)
[2019-07-21] MEDS: ENOXAPARIN 30 MG/0.3 ML SYRINGE SUBCUT SCH (06:31)
[2019-07-21] MEDS ORDERED: MAGNESIUM HYDROXIDE SUSP 30 ML UDCUP PO PRN (08:23)
[2019-07-21] MEDS ORDERED: MAGNESIUM HYDROXIDE SUSP 30 ML UDCUP PO ONE (08:23)
[2019-07-21] MEDS: POTASSIUM CHLORIDE 20 MEQ TABLET PO SCH (09:02)
[2019-07-21] MEDS: DOCUSATE SODIUM 100 MG CAPSULE PO SCH ×2 (09:02→20:02)
[2019-07-21] MEDS: CLOPIDOGREL 75 MG TABLET PO SCH (09:02)
[2019-07-21] MEDS: ROSUVASTATIN 10 MG TABLET PO SCH (09:02)
[2019-07-21] MEDS: hydrALAZINE 10 MG TABLET PO SCH ×2 (09:02→20:02)
[2019-07-21] MEDS: glipiZIDE 5 MG TABLET PO SCH (09:03)
[2019-07-21] MEDS: PANTOPRAZOLE 40 MG TABLET PO SCH (09:03)
[2019-07-21] MEDS: EZETIMIBE 10 MG TABLET PO SCH (09:03)
[2019-07-21] MEDS: AMIODARONE 200 MG TABLET PO SCH (09:03)
[2019-07-21] MEDS: ISOSORBIDE MONONITRATE 30 MG TABLET PO SCH (09:03)
[2019-07-21] MEDS: CARVEDILOL 12.5 MG TABLET PO SCH ×2 (09:03→20:03)
[2019-07-21] MEDS: LEVOFLOXACIN INJ 250 MG in PREMIX 1 EACH IV SCH (09:04)
[2019-07-21] MEDS: FUROSEMIDE 40 MG/4 ML VIAL IV SCH ×2 (09:04→16:26)
[2019-07-21] MEDS: ACETAMINOPHEN 325 MG TABLET PO PRN (19:54)
[2019-07-21] MEDS: ASPIRIN EC 81 MG TABLET PO SCH (20:02)
[2019-07-22] MEDS: methylPREDNISolone SOD SUC 40 MG/1 ML VIAL IV SCH ×2 (00:19→09:26)
[2019-07-22] MEDS: INSULIN REGULAR 100 UNIT/ML SUBCUT SCH ×4 (00:24→19:13)
[2019-07-22] MEDS: LEVALBUTEROL 0.63 MG/3 ML NEB RESP TX SCH ×4 (01:00→20:26)
[2019-07-22 04:35] LABS: Basophils % 0.1 % (0.0-0.8); Hematocrit 43.1 VOL% (42.0-52.0); Hemoglobin 14.3 GM/DL (14.0-18.0); Immature Granulocytes % 0.7 %; Immature Granulocytes Absolute 0.11 #; Lymphocytes # 0.4 10*3/uL (1.4-4.0); Lymphocytes % 2.3 % (21.2-54.2); Mean Corpuscular HGB Conc 33.2 GM/DL (32-36); Mean Corpuscular Volume 94.5 FL (87-102); Mean Platelet Volume 10.8 FL (9.6-12.0); Monocytes % 2.9 % (1.7-12.7); Platelet Count 201 T/CUMM (130-400); Red Blood Count 4.56 MC/CUMM (3.8-5.5); Red Cell Distribution Width 13.5 % (9.3-17.3); White Blood Count 16.7 T/CUMM (4-12)
[2019-07-22 05:10] LABS: Calcium 8.7 MG/DL (8.5-10.1); Osmolality,Calculated 306.3 MOS/KG (273-304)
[2019-07-22 05:30] LABS: Lymphocytes 3 % (20-55); Segmented Neutrophils 97 % (50-85)
[2019-07-22 05:31] LABS: Platelet Estimate Normal; Total Cells Counted 100
[2019-07-22] MEDS: ENOXAPARIN 30 MG/0.3 ML SYRINGE SUBCUT SCH (06:31)
[2019-07-22] MEDS: LEVOTHYROXINE 50 MCG TABLET PO SCH (06:31)
[2019-07-22] MEDS: POTASSIUM CHLORIDE 20 MEQ TABLET PO SCH (09:25)
[2019-07-22] MEDS: DOCUSATE SODIUM 100 MG CAPSULE PO SCH ×2 (09:25→21:56)
[2019-07-22] MEDS: PANTOPRAZOLE 40 MG TABLET PO SCH (09:25)
[2019-07-22] MEDS: CARVEDILOL 12.5 MG TABLET PO SCH ×2 (09:25→21:56)
[2019-07-22] MEDS: AMIODARONE 200 MG TABLET PO SCH (09:25)
[2019-07-22] MEDS: CLOPIDOGREL 75 MG TABLET PO SCH (09:25)
[2019-07-22] MEDS: hydrALAZINE 10 MG TABLET PO SCH ×2 (09:25→21:56)
[2019-07-22] MEDS: EZETIMIBE 10 MG TABLET PO SCH (09:25)
[2019-07-22] MEDS: LEVOFLOXACIN INJ 250 MG in PREMIX 1 EACH IV SCH (09:26)
[2019-07-22] MEDS: glipiZIDE 5 MG TABLET PO SCH (09:26)
[2019-07-22] MEDS: ISOSORBIDE MONONITRATE 30 MG TABLET PO SCH (09:26)
[2019-07-22] MEDS: FUROSEMIDE 40 MG/4 ML VIAL IV SCH ×2 (09:26→16:36)
[2019-07-22] MEDS: ASPIRIN EC 81 MG TABLET PO SCH (21:55)
[2019-07-22] MEDS: ACETAMINOPHEN 325 MG TABLET PO PRN (21:55)
[2019-07-23] MEDS: INSULIN REGULAR 100 UNIT/ML SUBCUT SCH ×5 (00:17→23:46)
[2019-07-23] MEDS: LEVALBUTEROL 0.63 MG/3 ML NEB RESP TX SCH ×4 (01:40→19:52)
[2019-07-23 04:41] LABS: Basophils % 0.2 % (0.0-0.8); Hematocrit 43.6 VOL% (42.0-52.0); Hemoglobin 14.3 GM/DL (14.0-18.0); Immature Granulocytes % 0.6 %; Lymphocytes # 0.5 10*3/uL (1.4-4.0); Lymphocytes % 2.6 % (21.2-54.2); Mean Corpuscular HGB Conc 32.8 GM/DL (32-36); Mean Corpuscular Volume 94.6 FL (87-102); Mean Platelet Volume 10.7 FL (9.6-12.0); Monocytes % 4.8 % (1.7-12.7); Neutrophils % 91.8 % (38.7-73.9); Platelet Count 189 T/CUMM (130-400); Red Blood Count 4.61 MC/CUMM (3.8-5.5); Red Cell Distribution Width 13.3 % (9.3-17.3); White Blood Count 17.6 T/CUMM (4-12)
[2019-07-23 05:07] LABS: Calcium 8.5 MG/DL (8.5-10.1); Osmolality,Calculated 306.7 MOS/KG (273-304)
[2019-07-23] MEDS: ENOXAPARIN 30 MG/0.3 ML SYRINGE SUBCUT SCH (06:15)
[2019-07-23] MEDS: LEVOTHYROXINE 50 MCG TABLET PO SCH (06:15)
[2019-07-23 06:32] LABS: Lymphocytes 1 % (20-55); Segmented Neutrophils 94 % (50-85); Total Cells Counted 100
[2019-07-23 06:33] LABS: Microcytosis Slight; Ovalocytes Slight
[2019-07-23 06:34] LABS: Platelet Estimate Normal
[2019-07-23] MEDS: FUROSEMIDE 40 MG/4 ML VIAL IV SCH ×2 (09:32→15:33)
[2019-07-23] MEDS: PSYLLIUM POWDER 3.7 GM/PACK PO SCH (09:32)
[2019-07-23] MEDS: PANTOPRAZOLE 40 MG TABLET PO SCH (09:32)
[2019-07-23] MEDS: EZETIMIBE 10 MG TABLET PO SCH (09:32)
[2019-07-23] MEDS: DOCUSATE SODIUM 100 MG CAPSULE PO SCH ×2 (09:33→20:30)
[2019-07-23] MEDS: hydrALAZINE 10 MG TABLET PO SCH (09:33)
[2019-07-23] MEDS: CARVEDILOL 12.5 MG TABLET PO SCH ×2 (09:33→20:30)
[2019-07-23] MEDS: glipiZIDE 5 MG TABLET PO SCH (09:33)
[2019-07-23] MEDS: AMIODARONE 200 MG TABLET PO SCH (09:33)
[2019-07-23] MEDS: POTASSIUM CHLORIDE 20 MEQ TABLET PO SCH (09:33)
[2019-07-23] MEDS: CLOPIDOGREL 75 MG TABLET PO SCH (09:33)
[2019-07-23] MEDS: LEVOFLOXACIN 250 MG TABLET PO SCH (09:33)
[2019-07-23] MEDS: ISOSORBIDE MONONITRATE 30 MG TABLET PO SCH (09:33)
[2019-07-23] MEDS: amLODIPine 5 MG TABLET PO SCH (15:33)
[2019-07-23] MEDS: hydrALAZINE 25 MG TABLET PO SCH ×2 (17:12→20:30)
[2019-07-23] MEDS: ASPIRIN EC 81 MG TABLET PO SCH (20:30)
[2019-07-24] MEDS: LEVALBUTEROL 0.63 MG/3 ML NEB RESP TX SCH ×3 (00:41→13:50)
[2019-07-24 04:37] LABS: Basophils % 0.2 % (0.0-0.8); Eosinophils % 0.1 % (0.00-10.9); Hematocrit 44.5 VOL% (42.0-52.0); Hemoglobin 14.5 GM/DL (14.0-18.0); Immature Granulocytes % 0.8 %; Immature Granulocytes Absolute 0.13 #; Lymphocytes # 0.7 10*3/uL (1.4-4.0); Lymphocytes % 4.3 % (21.2-54.2); Mean Corpuscular HGB Conc 32.6 GM/DL (32-36); Mean Corpuscular Volume 95.1 FL (87-102); Mean Platelet Volume 10.8 FL (9.6-12.0); Monocytes % 7.2 % (1.7-12.7); Neutrophils % 87.4 % (38.7-73.9); Platelet Count 197 T/CUMM (130-400); Red Blood Count 4.68 MC/CUMM (3.8-5.5); Red Cell Distribution Width 13.3 % (9.3-17.3); White Blood Count 16.9 T/CUMM (4-12)
[2019-07-24 04:58] LABS: Hypochromasia 1+; Lymphocytes 4 % (20-55); Platelet Estimate Adequate; Segmented Neutrophils 89 % (50-85); Total Cells Counted 100
[2019-07-24 04:59] LABS: Microcytosis Slight
[2019-07-24 05:05] LABS: Calcium 8.3 MG/DL (8.5-10.1); Osmolality,Calculated 307.5 MOS/KG (273-304)
[2019-07-24] MEDS: ENOXAPARIN 30 MG/0.3 ML SYRINGE SUBCUT SCH (06:03)
[2019-07-24] MEDS: LEVOTHYROXINE 50 MCG TABLET PO SCH (06:03)
[2019-07-24] MEDS: INSULIN REGULAR 100 UNIT/ML SUBCUT SCH ×2 (06:03→11:55)
[2019-07-24] MEDS: POTASSIUM CHLORIDE 20 MEQ TABLET PO SCH (10:02)
[2019-07-24] MEDS: LEVOFLOXACIN 250 MG TABLET PO SCH (10:03)
[2019-07-24] MEDS: glipiZIDE 5 MG TABLET PO SCH (10:03)
[2019-07-24] MEDS: EZETIMIBE 10 MG TABLET PO SCH (10:03)
[2019-07-24] MEDS: DOCUSATE SODIUM 100 MG CAPSULE PO SCH (10:03)
[2019-07-24] MEDS: hydrALAZINE 25 MG TABLET PO SCH ×2 (10:03→12:22)
[2019-07-24] MEDS: AMIODARONE 200 MG TABLET PO SCH (10:03)
[2019-07-24] MEDS: ROSUVASTATIN 10 MG TABLET PO SCH (10:04)
[2019-07-24] MEDS: CLOPIDOGREL 75 MG TABLET PO SCH (10:04)
[2019-07-24] MEDS: PANTOPRAZOLE 40 MG TABLET PO SCH (10:05)
[2019-07-24] MEDS: CARVEDILOL 12.5 MG TABLET PO SCH (10:05)
[2019-07-24] MEDS: FUROSEMIDE 40 MG/4 ML VIAL IV SCH (10:05)
[2019-07-24] MEDS: ISOSORBIDE MONONITRATE 30 MG TABLET PO SCH (10:05)
[2019-07-24] MEDS: amLODIPine 5 MG TABLET PO SCH (10:05)
[2019-07-24] MEDS: PSYLLIUM POWDER 3.7 GM/PACK PO SCH (10:06)
[2019-07-24 12:19] VITALS: BP 167/74
== END 2019-07-24 15:35 | disposition home health service (06) | DRG 280 ==
LOC: N.ED 23:52 → N.EDINP 07-18 01:15 → N.CC 07-18 01:42 → N.TELES 07-20 12:43
PROVIDERS: ADMIT Family Medicine; ATTEND Family Medicine

== ENCOUNTER 2022-06-11 22:37 | Inpatient (IN) ==
[2022-06-11] MEDS ORDERED: ALBUTEROL/IPRATROPIUM 3 ML NEB RESP TX STA (23:01)
[2022-06-11] MEDS ORDERED: FUROSEMIDE 40 MG/4 ML VIAL IV STA (23:01)
[2022-06-11 23:16] LABS: Basophils # 0.1 10*3/uL (0.0-0.2); Basophils % 0.4 % (0.0-0.8); Eosinophils # 0.1 10*3/uL (0.0-0.87); Eosinophils % 0.8 % (0.00-10.9); Hematocrit 42.6 VOL% (42.0-52.0); Hemoglobin 13.9 GM/DL (14.0-18.0); Immature Granulocytes % 0.5 %; Immature Granulocytes Absolute 0.07 #; Lymphocytes # 1.4 10*3/uL (1.4-4.0); Lymphocytes % 9.8 % (21.2-54.2); Mean Corpuscular HGB Conc 32.6 GM/DL (32-36); Mean Corpuscular Volume 91.4 FL (87-102); Mean Platelet Volume 10.6 FL (9.6-12.0); Monocytes # 1.3 10*3/uL (0.11-0.8); Monocytes % 8.6 % (1.7-12.7); Neutrophils % 79.9 % (38.7-73.9); Platelet Count 287 T/CUMM (130-400); Red Blood Count 4.66 MC/CUMM (3.8-5.5); Red Cell Distribution Width 15.9 % (9.3-17.3); White Blood Count 14.8 T/CUMM (4-12)
[2022-06-11 23:34] LABS: Albumin 3.1 G/DL (3.4-5.0); Bilirubin,Total 0.8 MG/DL (0.20-1.00); Calcium 9.2 MG/DL (8.5-10.1); Osmolality,Calculated 294.4 MOS/KG (273-304); Potassium 4.6 MMOL/L (3.5-5.1); Total Protein 7.3 G/DL (6.4-8.2)
[2022-06-11] MEDS ORDERED: ENOXAPARIN 60 MG/0.6 ML SYRINGE SUBCUT STA (23:38)
[2022-06-11] MEDS ORDERED: ASPIRIN 325 MG TABLET PO STA (23:38)
[2022-06-12] MEDS ORDERED: MAGNESIUM SULF RIDER 2 GM/50 ML PREMIX IV PRN (00:06)
[2022-06-12] MEDS ORDERED: ONDANSETRON 4 MG/2 ML VIAL IV PRN (00:06)
[2022-06-12] MEDS ORDERED: MAGNESIUM SULF RIDER 4 GM/100 ML PREMIX IV PRN (00:06)
[2022-06-12] MEDS: ALBUTEROL/IPRATROPIUM 3 ML NEB RESP TX SCH ×4 (00:43→19:53)
[2022-06-12] MEDS ORDERED: FUROSEMIDE 40 MG/4 ML VIAL IV SCH (09:30)
[2022-06-12] MEDS: POTASSIUM CHLORIDE 20 MEQ TABLET PO SCH (10:00)
[2022-06-12] MEDS: AMIODARONE 200 MG TABLET PO SCH (10:00)
[2022-06-12] MEDS: CLOPIDOGREL 75 MG TABLET PO SCH (10:00)
[2022-06-12] MEDS: PANTOPRAZOLE 40 MG TABLET PO SCH (10:00)
[2022-06-12] MEDS: carvediloL 3.125 MG TABLET PO SCH (10:00)
[2022-06-12] MEDS ORDERED: GLUCAGON 1 MG VIAL IM PRN (11:20)
[2022-06-12] MEDS ORDERED: DEXTROSE 10% 250 ML BAG IV PRN (11:27)
[2022-06-12] MEDS ORDERED: cefTRIAXone 1,000 MG in SODIUM CHLORIDE 0.9% 100 ML IV SCH (13:07)
[2022-06-12] MEDS ORDERED: FUROSEMIDE 40 MG/4 ML VIAL IV ONE (13:59)
[2022-06-12] MEDS: INSULIN REGULAR 100 UNIT/ML SUBCUT SCH ×3 (14:20→21:32)
[2022-06-12] MEDS: glipiZIDE 5 MG TABLET PO SCH (14:24)
[2022-06-12] MEDS ORDERED: ROSUVASTATIN 10 MG TABLET PO SCH (21:00)
[2022-06-12] MEDS ORDERED: ENOXAPARIN 60 MG/0.6 ML SYRINGE SUBCUT SCH (21:00)
[2022-06-12] MEDS ORDERED: ASPIRIN EC 81 MG TABLET PO SCH (21:00)
[2022-06-13] MEDS: ALBUTEROL/IPRATROPIUM 3 ML NEB RESP TX SCH ×2 (01:52→07:30)
[2022-06-13 05:59] LABS: Basophils % 0.1 % (0.0-0.8); Hemoglobin 12.9 GM/DL (14.0-18.0); Immature Granulocytes % 1.1 %; Immature Granulocytes Absolute 0.22 #; Lymphocytes # 0.7 10*3/uL (1.4-4.0); Lymphocytes % 3.2 % (21.2-54.2); Mean Corpuscular HGB Conc 31.5 GM/DL (32-36); Mean Corpuscular Volume 94.5 FL (87-102); Mean Platelet Volume 11.5 FL (9.6-12.0); Monocytes # 0.9 10*3/uL (0.11-0.8); Monocytes % 4.5 % (1.7-12.7); Neutrophils % 91.1 % (38.7-73.9); Platelet Count 238 T/CUMM (130-400); Red Blood Count 4.34 MC/CUMM (3.8-5.5); Red Cell Distribution Width 15.5 % (9.3-17.3); White Blood Count 20.8 T/CUMM (4-12)
[2022-06-13 06:20] LABS: Albumin 2.5 G/DL (3.4-5.0); Bilirubin,Total 0.9 MG/DL (0.20-1.00); Calcium 9.3 MG/DL (8.5-10.1); Free T4 (Free Thyroxine) 1.71 NG/DL (0.76-1.46); Osmolality,Calculated 290.5 MOS/KG (273-304); Potassium 4.7 MMOL/L (3.5-5.1); Thyroid Stimulating Hormone 4.59 uIU/ml (0.358-3.74); Total Protein 7.2 G/DL (6.4-8.2)
[2022-06-13 06:53] LABS: Lymphocytes 4 % (20-55); Platelet Estimate Normal; Total Cells Counted 100
[2022-06-13] MEDS ORDERED: LEVOTHYROXINE 50 MCG TABLET PO SCH (07:00)
[2022-06-13] MEDS ORDERED: FUROSEMIDE 40 MG/4 ML VIAL IV SCH (09:00)
[2022-06-13] MEDS: INSULIN REGULAR 100 UNIT/ML SUBCUT SCH (11:45)
[2022-06-13] MEDS: carvediloL 3.125 MG TABLET PO SCH (11:45)
[2022-06-13] MEDS: AMIODARONE 200 MG TABLET PO SCH (11:45)
[2022-06-13] MEDS: glipiZIDE 5 MG TABLET PO SCH (11:46)
[2022-06-13] MEDS: PANTOPRAZOLE 40 MG TABLET PO SCH (11:46)
[2022-06-13] MEDS: POTASSIUM CHLORIDE 20 MEQ TABLET PO SCH (11:46)
[2022-06-13] MEDS: CLOPIDOGREL 75 MG TABLET PO SCH (11:46)
[2022-06-13 11:51] VITALS: BP 106/63
== END 2022-06-13 08:19 | disposition expired ==
LOC: N.ED 22:37 → N.EDINP 06-12 00:06 → N.TELEN 06-12 12:22
PROVIDERS: ADMIT Family Medicine; ATTEND Family Medicine